=== PATIENT | male | born 1930 | race Caucasian/White ===

== ENCOUNTER 2016-12-19 14:25 | Inpatient (IN) ==
--- NOTE | 2016-12-19 14:54 | Emergency Department Note ---
Disposition Clinical Impression: Osteomyelitis Qualifiers: Osteomyelitis type: unspecified type Osteomyelitis location: foot Laterality: left Qualified Code(s): M86.9 - Osteomyelitis, unspecified Disposition: Admitted As Inpatient Condition: Good Referrals: Shelton Lockwood Jr, MD [Primary Care Provider] - Forms: ED Satisfaction Letter Lower Extremity Injury HPI - General Chief Complaint: ED Extremity Injury, Lower Stated Complaint: L foot wound Time Seen by Provider: 12/19/16 14:43 Source: patient, family Mode of arrival: private vehicle Limitations: no limitations Nursing Notes Reviewed: Yes Vital Signs Reviewed: Yes - History of Present Illness HPI Narrative: 86-year-old male history of hypertension, diabetes who presents to the ER with a chief complaint of left foot wound. He reports a roughly 3 weeks ago he stepped on a nail that went through his shoe. He was seen by his primary care provider and placed on antibiotics. Today he saw the surgeon at wound care who is concerned whenever they evaluated him and expressed purulent material from his foot. Patient was sent for advanced imaging. He denies fevers chills nausea vomiting diarrhea. He otherwise feels healthy. No other complaints. Pt Subjective Complaint: foot injury Injury location: Left foot Onset (ago): week(s) (3) Mechanism of Injury: puncture wound (Stepped on a nail) Context: direct blow Place: home Pain Severity: mild Improves with: nothing Worsens with: nothing Associated symptoms: Reports: ambulatory - Related Data Home Medications Medication Instructions Recorded Confirmed Aspirin Enteric Coated [Aspirin EC] 325 mg PO DAILY 12/19/16 12/19/16 Bisoprolol Fumarate [Zebeta] 10 mg PO DAILY 12/19/16 12/19/16 Metformin HCl [Fortamet] 500 mg PO DAILY 12/19/16 12/19/16 Allergies Allergy/AdvReac Type Severity Reaction Status Date / Time No Known Allergies Allergy Verified 12/19/16 14:34 All systems ED: reviewed and negative except as stated. Constitutional: Denies: fever Cardiovascular: Denies: chest pain Respiratory: Denies: dyspnea Gastrointestinal: Denies: abdominal pain, nausea, vomiting, diarrhea Integumentary: Reports: lesions (Left foot) Past Medical History - Past Medical History Attestation: Yes The following information was validated with the patient. Source: patient Medical history: Reports: CVA, diabetes, hypertension Surgical history: Reports: cholecystectomy Psychiatric history: Reports: no psych history - Social History Smoking Status: Never smoker Smokeless Tobacco Status: No Alcohol use: Reports: none Drug use: Reports: none Physical Exam - General Limitations: no limitations General appearance: alert, in no apparent distress - Head Head exam: atraumatic, normocephalic, normal inspection - Eye Eye exam: Present: normal appearance, EOMI - ENT ENT exam: normal exam - Neck Neck exam: Present: normal inspection, full ROM - Chest Chest inspection: Present: normal inspection, symmetric chest wall rise - Respiratory Respiratory exam: Present: normal lung sounds bilaterally - Cardiovascular Cardiovascular exam: Present: regular rate, normal rhythm, normal heart sounds - Abdominal Exam Abdominal exam: Present: soft, Non-Tender. Absent: tenderness - Extremities Exam Extremities exam: Present: normal inspection, full ROM - Expanded Upper Extremity Exam Shoulder exam: Present: normal inspection, full ROM Arm exam: Present: normal inspection, full ROM Elbow exam: Present: normal inspection, full ROM Forearm/Wrist exam: Present: normal inspection, full ROM Hand exam: Present: normal inspection, full ROM - Expanded Lower Extremity Exam Hip/Pelvis exam: Present: normal inspection, full ROM Upper leg exam: Present: normal inspection, full ROM Knee exam: Present: normal inspection, full ROM Lower leg exam: Present: normal inspection, full ROM Ankle exam: Present: normal inspection, full ROM Foot/toe exam: Present: full ROM, puncture wound (There is a puncture wound to the medial aspect of the left plantar surface of the left foot. There is surrounding soft tissue swelling and breakdown. Minimal amount of purulent material expressed from the site.) Neurovascular/Tendon exam: Present: sensory deficit (Secondary to neuropathy). Absent: motor deficit - Neurological Exam Neurological exam: Present: alert, other (GCS 15. Moves all extremities equally.) - Psychiatric Psychiatric exam: Present: normal affect, normal mood - Skin Skin exam: Present: warm, dry, intact, normal color Course Course Narrative: Patient seen and examined. Vital signs reviewed. We will obtain an MRI of the left foot to evaluate for osteomyelitis as well as basic labs including inflammatory markers. - Reevaluation(s) Reevaluation #1: I discussed the results of the MRI and lab work with the patient and family. There is concern for developing osteomyelitis of his left great toe. I also discussed that we spoke with podiatry and will start IV antibiotics and admission for osteomyelitis. They are in agreement with the plan. - Consultations Consultation #1: I spoke with the on-call brand mgr. Discussed the patient's history exam findings and imaging today. They recommended start the patient on vancomycin and Zosyn and they will see him in consultation. Vital Signs Temperature 97.9 F 12/19/16 14:30 Pulse Rate 67 12/19/16 14:30 Respiratory Rate 18 12/19/16 14:30 Blood Pressure 134/71 12/19/16 14:30 O2 Sat by Pulse Oximetry 95 12/19/16 14:30 Temperature 97.9 F 12/19/16 14:30 Pulse Rate 67 12/19/16 14:30 Respiratory Rate 18 12/19/16 14:30 Blood Pressure 134/71 12/19/16 14:30 O2 Sat by Pulse Oximetry 95 12/19/16 14:30 Oxygen Delivery Oxygen Delivery Room Air Extremity Injury, Lower - MDM Narrative Medical decision making narrative: 86-year-old male history of diabetes presents to the ER due to left foot infection. He stepped on a nail 3 weeks ago. He has failed outpatient antibiotics. Wound care sulfation today and was concerned about purulent material from the left foot. We obtained cultures here. His ESR is elevated at 58. MRI of the left foot with concern for developing osteomyelitis. This case was discussed with podiatry who recommended vancomycin and Zosyn as well as admission to the hospitalist service with consultation. Patient admitted to the hospitalist service. - Lab Data Lab results reviewed: Yes I reviewed the patient's lab results. Result diagrams: 12/19/16 14:50 12/19/16 15:02 Lab Results 12/19/16 12/19/16 12/19/16 Range/Units 14:50 15:02 15:02 WBC 12.9 H (4.3-11.1) K/mcL RBC 5.45 (4.19-5.50) M/mcL Hgb 15.2 (12.9-16.9) g/dL Hct 46.0 (37.5-50.1) % MCV 84.4 (83.0-100.0) fL MCH 27.9 L (28.0-33.3) pg MCHC 33.0 (31.6-35.5) g/dL RDW 12.3 (11.5-14.5) % Plt Count 382 (140-400) K/mcL MPV 9.1 L (9.4-12.4) fL Immature Gran % 0.5 (0-4) % Seg Neutrophils % 74.7 % Lymphocytes % 12.7 % Monocytes % 9.3 % Eosinophils % 2.2 % Basophils % 0.6 % Neutrophils # 9.6 H (1.6-8.9) K/mcL Lymphocytes # 1.6 (0.6-4.6) K/mcL Monocytes # 1.2 (0.0-1.3) K/mcL Eosinophils # 0.3 (0.0-0.6) K/mcL Basophils # 0.1 (0.0-0.2) K/mcL Immature Plt Fraction 1.4 (1.1-6.1) % ESR 58 H (0-10) mm/hr Sodium 137 (136-145) mEq/L Potassium 3.6 (3.5-4.5) mEq/L Chloride 101 (98-109) mEq/L Carbon Dioxide 30 H (19-29) mEq/L BUN 11 (8-26) mg/dL Creatinine 0.77 (0.72-1.25) mg/dL Est GFR ( Amer) > 60 (> 60) Est GFR (Non-Af Amer) > 60 (> 60) BUN/Creatinine Ratio 14 (6-26) Glucose 172 H (70-99) mg/dL Calculated Osmolality 287 (280-300) Calcium 9.4 (8.6-10.8) mg/dL C-Reactive Protein (Less than 5) mg/L 12/19/16 Range/Units 15:02 WBC (4.3-11.1) K/mcL RBC (4.19-5.50) M/mcL Hgb (12.9-16.9) g/dL Hct (37.5-50.1) % MCV (83.0-100.0) fL MCH (28.0-33.3) pg MCHC (31.6-35.5) g/dL RDW (11.5-14.5) % Plt Count (140-400) K/mcL MPV (9.4-12.4) fL Immature Gran % (0-4) % Seg Neutrophils % % Lymphocytes % % Monocytes % % Eosinophils % % Basophils % % Neutrophils # (1.6-8.9) K/mcL Lymphocytes # (0.6-4.6) K/mcL Monocytes # (0.0-1.3) K/mcL Eosinophils # (0.0-0.6) K/mcL Basophils # (0.0-0.2) K/mcL Immature Plt Fraction (1.1-6.1) % ESR (0-10) mm/hr Sodium (136-145) mEq/L Potassium (3.5-4.5) mEq/L Chloride (98-109) mEq/L Carbon Dioxide (19-29) mEq/L BUN (8-26) mg/dL Creatinine (0.72-1.25) mg/dL Est GFR ( Amer) (> 60) Est GFR (Non-Af Amer) (> 60) BUN/Creatinine Ratio (6-26) Glucose (70-99) mg/dL Calculated Osmolality (280-300) Calcium (8.6-10.8) mg/dL C-Reactive Protein 37 H (Less than 5) mg/L - Radiology Data Radiology results reviewed: Yes I reviewed the patient's radiology results. Foot MRI 12/19/16 14:57 IMPRESSION: Image quality is significantly degraded secondary to motion artifact. 1. Within limits of the exam there marrow signal changes and postcontrast enhancement within the medial hallux sesamoid which is highly suspicious for osteomyelitis. Similar marrow signal changes and postcontrast enhancement also identified within the medial cuneiform with what appears to be an adjacent soft tissue wound along the plantar surface of the foot. Findings are also highly suspicious for osteomyelitis of the medial cuneiform. 2. Apparent linear soft tissue wound along the plantar foot which may reflect puncture site given patient's history of stepping on nail. This is located along the medial plantar foot at the level of the midfoot. Please correlate with clinical exam and location of injury. No organized drainable fluid collection identified at this site. 3. Small amount of nonspecific and ill-defined subcutaneous edema/fluid within the soft tissues adjacent to the 1st metatarsophalangeal joint along the plantar medial surface. No definite postcontrast enhancement is seen surrounding this fluid. D/ / Bay Navarro MD / Bay Navarro MD Interpreting Provider: Bay Navarro MD Attestation Statement - Attestation Attestation: I examined this patient and my medical decision-making was reviewed with the Resident Physician. I agree with the documented findings, disposition and treatment plan as described except to the extent set forth below. Patient to the emergency department with a left foot infection. Patient has been undergoing wound care since he stepped on a nail that went through his shoe 3 weeks ago. He states he took 2 antibiotics but is not sure what they were. Went to wound care today and was sent here for possible osteomyelitis. On examination he has sloughing of the skin of the plantar aspect of the ball of the foot at the base of the great and second toes. There is drainage. Plan. Cultures obtained and sent. Labs. MR foot. MRI shows osteomyelitis. Will discuss with podiatry and admit. Starting antibiotic.
[2016-12-19 15:16] LABS: Basophils # 0.1 K/mcL (0.0-0.2); Basophils % 0.6 %; Eosinophils # 0.3 K/mcL (0.0-0.6); Eosinophils % 2.2 %; Hemoglobin 15.2 g/dL (12.9-16.9); Immature Granulocytes % 0.5 % (0-4); Immature Platelets 1.4 % (1.1-6.1); Lymphocytes # 1.6 K/mcL (0.6-4.6); Lymphocytes % 12.7 %; Mean Corpuscular Hemoglobin 27.9 pg (28.0-33.3); Mean Corpuscular Volume 84.4 fL (83.0-100.0); Mean Platelet Volume 9.1 fL (9.4-12.4); Monocytes # 1.2 K/mcL (0.0-1.3); Monocytes % 9.3 %; Neutrophils # 9.6 K/mcL (1.6-8.9); Platelet Count 382 K/mcL (140-400); Red Blood Count 5.45 M/mcL (4.19-5.50); Red Cell Distribution Width 12.3 % (11.5-14.5); Segmented Neutrophils % 74.7 %
[2016-12-19 15:27] LABS: BUN/Creatinine Ratio 14 (6-26); Blood Urea Nitrogen 11 mg/dL (8-26); Calcium 9.4 mg/dL (8.6-10.8); Carbon Dioxide 30 mEq/L (19-29); Chloride 101 mEq/L (98-109); Glucose 172 mg/dL (70-99); Osmolality,Calculated 287 (280-300); Potassium 3.6 mEq/L (3.5-4.5); Sodium 137 mEq/L (136-145); eGFR For African Americans > 60 (> 60); eGFR For Non-African Americans > 60 (> 60)
[2016-12-19] MEDS ORDERED: Piperacillin/Tazobactam 3.375 GM in D5% in Water (Mini-Bag+) 100 ML IVPB ONE (18:32)
[2016-12-19] MEDS ORDERED: Vancomycin 1,000 MG in D5% in Water 250 ML IVPB ONE (18:32)
[2016-12-19] MEDS ORDERED: Acetaminophen 325 MG TABLET PO PRN (21:12)
[2016-12-19] MEDS ORDERED: *HR* HYDROcodone/Acet 5/325 mg TABLET PO PRN (21:12)
[2016-12-19] MEDS ORDERED: Naloxone 0.4 MG/ML INJ IVP PRN (21:12)
[2016-12-19] MEDS ORDERED: *HR* Morphine 2 MG/ML SYRINGE IVP PRN (21:12)
[2016-12-19] MEDS ORDERED: *HR* Dextrose 50 % in Water (Syg) 50 ML SYRINGE IVP PRN (21:15)
[2016-12-19] MEDS ORDERED: D5% in Water 1,000 ML IVC PRN (21:15)
[2016-12-19] MEDS ORDERED: Dextrose Gel 15 GM PO PRN ×2 (21:15)
[2016-12-19] MEDS: Pantoprazole 40 MG VIAL IVP SCH (21:59)
[2016-12-19] MEDS: *HR* Heparin 5,000 UNIT/ML VIAL SQ SCH (21:59)
[2016-12-19] MEDS: 0.9 % Sodium Chloride 1,000 ML IVC SCH (21:59)
--- NOTE | 2016-12-19 22:54 | Internal Med History&Physical ---
<Ezequiel Zendejas - Last Filed: 12/19/16 22:54> Date of Encounter: 12/19/16 Time of Encounter: 22:53 Assessment and Plan (1) Osteomyelitis Current visit: Yes Status: Acute Contiguous osteomyelitis Secondary to puncture wound to left foot MRI indicates high suspicion of osteomyelitis in the medial hallux and medial cuneiform Podiatry Notified and patient started on vancomycin and Zosyn ESR 58 White blood cell count 12.9 CRP 37 Plan: Continue vancomycin and Zosyn Tomorrow morning patient will undergo surgical debridement with bone sample wound cultures pending npo midnight Qualifiers: Osteomyelitis type: unspecified type Osteomyelitis location: foot Laterality: left Qualified Code(s): M86.9 - Osteomyelitis, unspecified (2) Puncture wound of left foot with complication Current visit: Yes Status: Acute 2nd puncture wound from nail does 1-3/4 inch and punctured at a depth of 3/4 inch into his left foot. High suspicion of osteomyelitis indicated by MRI Plan: Vancomycin, Zosyn Podiatry will surgically debride Patient tomorrow morning. Qualifiers: Encounter type: initial encounter Qualified Code(s): S91.332A - Puncture wound without foreign body, left foot, initial encounter (3) Diabetes mellitus Current visit: Yes Status: Chronic controlled on metformin at home plan: diabetic diet achs npo midnight for am surgery Qualifiers: Diabetes mellitus type: type 2 Diabetes mellitus complication status: with neurologic complications Diabetes mellitus complication detail: with autonomic neuropathy Diabetes mellitus detention insulin use: without detention use Qualified Code(s): E11.43 - Type 2 diabetes mellitus with diabetic autonomic (poly)neuropathy (4) Hypertension Current visit: Yes Status: Acute Controlled Plan: Continue home medications Qualifiers: Hypertension type: essential hypertension Qualified Code(s): I10 - Essential (primary) hypertension (5) DVT prophylaxis Current visit: Yes Status: Acute Heparin subcutaneous Internal Medicine - H&P: HPI Chief complaint: left foot wound Admitted From: Home Plans for Post Hospital Care: Home History of present illness: Mr. Jordan is a 86 year old male presents with chief complaint of left foot wound. Patient states in November he was working outside and stepped on a piece of nail there was one and three-quarter inches long with his left foot. He had shoes on and states the nail went as deep as 3/4 inches into the medial mid plantar aspect. Patient has history of diabetes mellitus and severe peripheral neuropathy. He states he did not notice the nail was in his foot for several hours and walked on it. Once the nail was found, it was pulled and the next day patient went to his PCP prescribed him Ciprofloxacillin. In the next week patient developed erythema and purulent drainage around the puncture site and also at the base of his great toe. With the antibiotics patient's wound did not improve and a callus developed at the base of his great toe and the plantar aspect. He was then prescribed combination of ciprofloxacin and Bactrim for another 10 days. His last visit to the PCP was one week ago and he was referred to wound care and his great toe was debrided and there was purulent material expelled from his foot. There were concerned for osteomyelitis and sent the patient a year. Patient denies fevers, chills, nausea, vomiting, diarrhea. Patient received tetanus shot during first visit to PCP in November. Patient denies previous occurrence of this, however decided on in the past he had infection of the right great toe which was managed by antibiotcs and debridement and did not require amputation. Past Med Surg Social Fam HX - Past Medical History Medical history: CVA, diabetes, hypertension Psychiatric history: no psych history - Past Surgical History Surgical History: cholecystectomy - Social History Smoking Status: Never smoker Smokeless Tobacco Status: No Alcohol use: none Drug use: none - Family History Father Living Status: Hx Family Cardiac Disorders: Yes (Hypertension) Mother Cause of : cva Internal Medicine - H&P: Meds Aspirin Enteric Coated [Aspirin EC] 325 mg PO DAILY 12/19/16 [History] Bisoprolol Fumarate [Zebeta] 10 mg PO DAILY 12/19/16 [History] Metformin HCl [Fortamet] 500 mg PO DAILY 12/19/16 [History] 3 Allergy/AdvReac Type Severity Reaction Status Date / Time No Known Allergies Allergy Verified 12/19/16 14:34 All Systems PM: A 10-system review of systems was performed and is negative for pertinent findings except as documented above in the HPI. Review of systems: Constitutional: Denies fever, chills HEENT: Denies headache, vision changes, neck pain, sore throat, rhinorrhea Heart: Denies chest pain palpitations Lungs: Denies shortness of breath cough Abdomen: Denies abdominal pain nausea vomiting diarrhea Back: Denies back pain Skin: Reports left foot puncture wound and erythema Kidney: Denies dysuria, hematuria Extremities: Denies swelling, pain Neuro: Reports numbness in bilateral lower extremities, denies tingling - Constitutional Vitals: Temp Pulse Resp BP Pulse Ox 97.9 F 67 16 125/97 95 12/19/16 14:30 12/19/16 19:04 12/19/16 19:59 12/19/16 19:59 12/19/16 14:30 - Other Additional findings: General: Alert and oriented to place time and situation. Without distress HEENT: Head atraumatic, normocephalic, EOMI, PERRLA, neck nontender to palpation , absent Lymphadenopathy, Moist Mucous Membranes, Heart: Regular rate and rhythm with no murmur Lungs: Clear to auscultation bilaterally Abdomen: Soft nontender, nondistended positive bowel sounds, mid abdominal incision status post cholecystectomy Extremities: Absent pedal edema, Neuro: Cranial nerves II through XII intact, sensation equal bilaterally except for bilateral feet with decreased sensation and proprioception, strength upper and lower extremity 5/5, alert oriented 3 Vascular: Pedal and radialpulses 2 out of 4 Skin: 2 mm puncture wound to left medial mid plantar aspect of foot, erythema on the dorsal aspect of foot, status post debridement of left great toe. Without drainage Internal Med - H&P Results - Labs CBC & Chem 7: 12/19/16 14:50 12/19/16 15:02 <Uriel Damico - Last Filed: 12/20/16 03:31> Date of Encounter: 12/19/16 Internal Medicine - H&P: HPI History of present illness: Mr. Jordan is a 86 year old male All Systems PM: A 10-system review of systems was performed and is negative for pertinent findings except as documented above in the HPI. - Constitutional Vitals: Temp Pulse Resp BP Pulse Ox 97.6 F 63 14 157/66 96 12/19/16 22:00 12/19/16 22:00 12/19/16 22:00 12/19/16 22:00 12/19/16 22:00 Internal Med - H&P Results - Labs CBC & Chem 7: 12/19/16 14:50 12/19/16 15:02 - Diagnostic Studies Other Images Status: image reviewed by me (foot MRI) - Attending Attestation I personally interviewed and examined this patient and my medical decision- making was reviewed with the Resident Physician. I agree with the documented findings, disposition and treatment plan as described. Uriel Damico MD, MPH Hospitalist
--- NOTE | 2016-12-19 23:01 | Podiatry Consult Note ---
Date of Encounter: 12/19/16 Time of Encounter: 09:20 History of Present Illness HPI: Mr. Jordan is a 86 year old diabetic male who approximately 3 weeks ago stepped on a nail which went through his shoe and into his left foot. He pulled it out and saw his PCP who put him on oral antibiotics. [facility] had a draining wound [facility] purulent drainage was coming out of the wound. He was sent from woundcare to the ER for admission. He had an MRI which showed the tibial sesamoid and medial cuneiform highly suspicious for osteomyelitis. denies f/c/n/v. Podiatry consulted for evaluation. A/P diabetes with neuropathy diabetic left foot infection with likely osteomyelitis, possible abscess submet 1 diabetic left foot wound submet 1 and sub medial cuneiform I had a thorough review with the patient regarding his injury/condition, my findings and his treatment options surgical and non-surgical. He has wounds in correlation with the questionable osteomyelitis and abscess site. Discussed with patient sullye of procedure incision and drainage left foot, excision of tibial sesamoid bone and biopsy of medial cuneiform bone. Risks vs benefits potential complications and consequences of the procedure discussed. no guarantees made as to the outcome. he understands he is high risk for partial foot loss. He says he wants to proceed with surgery. all questions answered, informed consent was signed. NPO after midnight. fluids ordered. Added on to OR tomorrow. Past Med Surg Social Fam HX - Past Medical History Medical history: CVA, diabetes, hypertension Psychiatric history: no psych history - Past Surgical History Surgical History: cholecystectomy - Social History Smoking Status: Never smoker Smokeless Tobacco Status: No Alcohol use: none Drug use: none - Family History Father Living Status: Mother Cause of : cva Medications and Allergies Aspirin Enteric Coated [Aspirin EC] 325 mg PO DAILY 12/19/16 [History] Bisoprolol Fumarate [Zebeta] 10 mg PO DAILY 12/19/16 [History] Metformin HCl [Fortamet] 500 mg PO DAILY 12/19/16 [History] 3 Allergy/AdvReac Type Severity Reaction Status Date / Time No Known Allergies Allergy Verified 12/19/16 14:34 All Systems Reviewed: A 10-system review of systems was performed and is negative for pertinent findings except as documented above in the HPI. Physical Exam - Constitutional Vitals: Temp Pulse Resp BP Pulse Ox 97.9 F 67 16 125/97 95 12/19/16 14:30 12/19/16 19:04 12/19/16 19:59 12/19/16 19:59 12/19/16 14:30 - Head Head exam: Present: atraumatic - Extremities Exam Additional comments: Vasc: CFT < 3 sec x 5 digits left foot. left foot warm to touch. Derm: midfoot evidence of entry point from nail sub medial cuneiform. left submet 1 erythema and some fluctuance with evidence of superficial wound with central scab. hyperkeratosis has been debrided submet 1. no purulence able to be expressed. Musc: no pain with calf squeeze b/l. can flex and extend left foot digits. Neuro: sensation absent to light touch Results - Labs Result Diagrams: 12/19/16 14:50 12/19/16 15:02 Labs: Abnormal lab results WBC 12.9 K/mcL (4.3-11.1) H 12/19/16 14:50 MCH 27.9 pg (28.0-33.3) L 12/19/16 14:50 MPV 9.1 fL (9.4-12.4) L 12/19/16 14:50 Neutrophils # 9.6 K/mcL (1.6-8.9) H 12/19/16 14:50 ESR 58 mm/hr (0-10) H 12/19/16 15:02 Carbon Dioxide 30 mEq/L (19-29) H 12/19/16 15:02 Glucose 172 mg/dL (70-99) H 12/19/16 15:02 C-Reactive Protein 37 mg/L (Less than 5) H 12/19/16 15:02 All other labs normal. - Diagnostic results Ankle/Foot MRI: report reviewed, image reviewed Consult Discharge Plan - Plan Referrals: Shelton Lockwood Jr, MD [Primary Care Provider] -
[2016-12-20 05:43] LABS: Basophils # 0.1 K/mcL (0.0-0.2); Basophils % 0.7 %; Eosinophils # 0.4 K/mcL (0.0-0.6); Eosinophils % 3.7 %; Hematocrit 42.5 % (37.5-50.1); Hemoglobin 14.2 g/dL (12.9-16.9); Immature Granulocytes % 0.6 % (0-4); Lymphocytes # 1.4 K/mcL (0.6-4.6); Lymphocytes % 12.5 %; Mean Corpuscular HGB Conc 33.4 g/dL (31.6-35.5); Mean Corpuscular Hemoglobin 27.8 pg (28.0-33.3); Mean Corpuscular Volume 83.3 fL (83.0-100.0); Monocytes # 1.1 K/mcL (0.0-1.3); Monocytes % 9.6 %; Platelet Count 288 K/mcL (140-400); Red Cell Distribution Width 12.3 % (11.5-14.5); Segmented Neutrophils % 72.9 %
[2016-12-20 05:53] LABS: BUN/Creatinine Ratio 13 (6-26); Blood Urea Nitrogen 9 mg/dL (8-26); Calcium 8.6 mg/dL (8.6-10.8); Carbon Dioxide 30 mEq/L (19-29); Chloride 102 mEq/L (98-109); Glucose 131 mg/dL (70-99); Osmolality,Calculated 284 (280-300); Potassium 3.4 mEq/L (3.5-4.5); Sodium 137 mEq/L (136-145); eGFR For African Americans > 60 (> 60); eGFR For Non-African Americans > 60 (> 60)
[2016-12-20] MEDS: Piperacillin/Tazobactam 3.375 GM in D5% in Water (Mini-Bag+) 100 ML IVPB SCH ×3 (05:57→21:02)
[2016-12-20] MEDS: *HR* Heparin 5,000 UNIT/ML VIAL SQ SCH ×2 (05:58→18:12)
[2016-12-20] MEDS ORDERED: Potassium Chloride 20 MEQ, Lidocaine 1% 2 ML in D5% in Water 250 ML IVPB ONE (08:00)
[2016-12-20] MEDS: Pantoprazole 40 MG VIAL IVP SCH (08:12)
[2016-12-20] MEDS: Insulin LISPRO 300 UNITS/3 ML VIAL SQ SCH ×4 (08:23→21:06)
[2016-12-20] MEDS ORDERED: (Bisoprolol Fumarate [Zebeta] 10 MG) PO SCH (09:00)
[2016-12-20] MEDS: 0.9 % Sodium Chloride 1,000 ML IVC SCH (10:21)
--- NOTE | 2016-12-20 12:01 | Anesthesia Evaluation PreOp ---
Date of Encounter: 12/20/16 Time of Encounter: 11:59 - Past History Planned Operation: I and D left foot, excision bone, bone bx Cardiac History: HTN Pulmonary History: Denies Any Significant HX [employer] History: Denies Any Significant HX Other Medical History: Diabetes Type II Anesthesia History: No Prior Anesthetic Complications, Past Anesthesia ( cholecystectomy) Alcohol Use: none Drug use: none Medications and Allergies Aspirin Enteric Coated [Aspirin EC] 325 mg PO DAILY 12/19/16 [History] Bisoprolol Fumarate [Zebeta] 10 mg PO DAILY 12/19/16 [History] Metformin HCl [Fortamet] 500 mg PO DAILY 12/19/16 [History] 3 Allergy/AdvReac Type Severity Reaction Status Date / Time No Known Allergies Allergy Verified 12/19/16 14:34 - Meds/Allergy Pre-op Review Medications Reviewed: Yes Allergies Reviewed: Yes Beta Blockers on Current Med List: Yes If Beta Blockers taken, Date/Time (Last Dose taken): not taken in over 48hrs, will give intraop if needed Anesthesia Results - Labs 12/20/16 05:18 12/20/16 05:18 Anesthesia Exam Vital Signs/O2 Sat, Most Current Temp Pulse Resp BP Pulse Ox 97.4 F L 58 16 161/72 98 12/20/16 11:53 12/20/16 11:53 12/20/16 11:53 12/20/16 11:53 12/20/16 11:53 Height: 1.73 Weight: 63kg NPO (# of Hours): >8 - HEENT Pupil (Motor): Pupils equal, EOMI Teeth: Edentulous Oral Opening: Greater than 3 - [employer] LOC: Oriented [employer] Motor: Normal RUE, Normal LUE, Normal RLE, Normal LLE, Normal Face [employer] Sensory: Normal: RUE, LUE, RLE, LLE, Face - Cardiac Rhythm: Regular - Pulmonary Breath Sounds: bilateral Clear Anesthesia Assess/Plan ASA Score: 3 Modified Thong Scale for Level of Consciousness: Cooperative, oriented, and tranquil Anesthetic Plan: General (HTN, DM) Monitoring Plan: Standard Monitors Recovery Plan: PACU
--- NOTE | 2016-12-20 12:31 | Internal Med Progress Note ---
Date of Encounter: 12/20/16 Time of Encounter: 12:29 - Assessment and plan (1) Osteomyelitis Current Visit: Yes Status: Acute Assessment and plan: Secondary to traumatic injury history of diabetic neuropathy scheduled for surgery by podiatry later today (12/20/16) pain control NPO at this time will resume ADA diet will continue post-op care as per podiatry podiatry consultation appreciated continue IV abx ID consultation for [facility] abx management requested Qualifiers: Osteomyelitis type: unspecified type Osteomyelitis location: foot Laterality: left Qualified Code(s): M86.9 - Osteomyelitis, unspecified (2) Puncture wound of left foot with complication Current Visit: Yes Status: Chronic Assessment and plan: as listed above Qualifiers: Encounter type: initial encounter Qualified Code(s): S91.332A - Puncture wound without foreign body, left foot, initial encounter (3) Hypokalemia Current Visit: Yes Status: Acute Assessment and plan: K supplemented continue to monitor electrolytes and replace as needed (4) Diabetes mellitus Current Visit: Yes Status: Chronic Assessment and plan: continue to monitor FS and BG accuchecks q6h while NPO, ACHS once diet is resume continue ss insulin algorithm Qualifiers: Diabetes mellitus type: type 2 Diabetes mellitus complication status: with neurologic complications Diabetes mellitus complication detail: with autonomic neuropathy Diabetes mellitus m[facility]p insulin use: without [facility] use Qualified Code(s): E11.43 - Type 2 diabetes mellitus with diabetic autonomic (poly)neuropathy (5) Hypertension Current Visit: Yes Status: Acute Assessment and plan: Pt on bisoprolol at home, not available in the hospital pharmacy, will dose Atenolol as per his home dose of BB will use Lopressor 5mg IV q6h while NPO closely monitor BP Qualifiers: Hypertension type: essential hypertension Qualified Code(s): I10 - Essential (primary) hypertension (6) DVT prophylaxis Current Visit: Yes Status: Acute Assessment and plan: Heparin SQ - Subjective Interval history: Patient seen and examined with family present at bedside. Pt is [place] and has severe b/l LE peripheral neuropathy. As per family, he stepped on a nail and didn't even realize it as he has no sensation intact in the b/l feet. He is currently resting comfortably in bed and denies any discomfort. He lives at home with his . Scheduled for surgical debridement of left foot later today. - Constitutional Vitals: Temp Pulse Resp BP Pulse Ox 97.4 F L 58 16 161/72 98 12/20/16 11:53 12/20/16 11:53 12/20/16 11:53 12/20/16 11:53 12/20/16 11:53 General appearance: Present: cooperative, A&O X 3 (hard of hearing), no acute distress, answers questions appropriately - Head Head exam: Present: atraumatic, normocephalic - Eye Eye exam: Present: conjuntiva pink, sclera anicteric - Respiratory Respiratory exam: Present: CTAB. Absent: accessory muscle use, rales, rhonchi, wheezes - Cardiovascular Cardiovascular exam: Present: RRR, +S1, +S2. Absent: diastolic murmur, gallop, rubs, systolic murmur - GI/Abdominal GI/Abdominal exam: Present: normal bowel sounds, soft, no peritoneal signs. Absent: distended, tenderness - Extremities Exam Extremities exam: Present: warm, radial pulses palpable and symmetrical. Absent : calf tenderness (2 mm puncture wound to left medial mid plantar aspect of foot , erythema on the dorsal aspect of foot, status post debridement of left great toe.NO drainage) - Neurological Exam Neurological exam: Present: oriented X3 (decreased sensation in bilateral feet) - Psychiatric Psychiatric exam: Present: normal affect, normal mood Internal Medicine: Result - Labs CBC & Chem 7: 12/20/16 05:18 12/20/16 05:18 Labs: Short CBC 12/20/16 Range/Units 05:18 WBC 11.0 (4.3-11.1) K/mcL Hgb 14.2 (12.9-16.9) g/dL Hct 42.5 (37.5-50.1) % Plt Count 288 (140-400) K/mcL Neutrophils # 8.0 (1.6-8.9) K/mcL BMP 12/20/16 05:18 Sodium 137 Potassium 3.4 L Chloride 102 Carbon Dioxide 30 H BUN 9 Creatinine 0.70 L Glucose 131 H Calcium 8.6 Consult Discharge Plan - Plan Referrals: Shelton Lockwood Jr, MD [Primary Care Provider] -
[2016-12-20] MEDS ORDERED: *HR* Propofol 200 MG/20 ML VIAL IVP ONE ×3 (12:33→15:07)
[2016-12-20] MEDS ORDERED: Lidocaine -MPF 2% 2 ML VIAL ONE (12:33)
[2016-12-20] MEDS ORDERED: *HR* Metoprolol 5 MG/5 ML VIAL IVP SCH (12:36)
[2016-12-20] MEDS ORDERED: Lidocaine 1% 20 ML MDV ONE (14:06)
[2016-12-20] MEDS ORDERED: Vancomycin 1,000 MG VIAL ONE (14:06)
[2016-12-20] MEDS ORDERED: Ringers Solution, Lactated 1,000 ML ONE (14:48)
[2016-12-20] MEDS ORDERED: *HR* FentaNYL (PF) 100 MCG/2 ML VIAL ONE (15:17)
--- NOTE | 2016-12-20 16:19 | Anesthesia Evaluation Post Op ---
Date of Encounter: 12/20/16 Time of Encounter: 16:17 - Vital Signs Vital Signs: BP 104/58, P 60 RR 18, 97% on 3L NC - Lungs Lungs: Clear Ascult./Percussion - Airway Airway: Non-obstructed - Cardiovascular Regular Rate - Mental Status Mental Status: Asleep without brisk response to light stimulation - Pain Pain Scale: 0 Pain Scale used: Numeric (1 - 10) - Nausea Vomiting Nausea Vomiting: Not Present - Hydration Hydration: NPO - Discharge PostOp Status: Transfer Patient to floor Attestation: I have assessed this patient and find they meet discharge criteria.
[2016-12-20] MEDS ORDERED: D5% in Water 1,000 ML IVC PRN (16:23)
[2016-12-20] MEDS ORDERED: Dextrose Gel 15 GM PO PRN ×2 (16:23)
[2016-12-20] MEDS ORDERED: *HR* HYDROcodone/Acet 5/325 mg TABLET PO PRN (16:23)
[2016-12-20] MEDS ORDERED: Acetaminophen 325 MG TABLET PO PRN (16:23)
[2016-12-20] MEDS ORDERED: *HR* Dextrose 50 % in Water (Syg) 50 ML SYRINGE IVP PRN (16:23)
[2016-12-20] MEDS ORDERED: *HR* Morphine 2 MG/ML SYRINGE IVP PRN (16:23)
[2016-12-20] MEDS ORDERED: Naloxone 0.4 MG/ML INJ IVP PRN (16:23)
--- NOTE | 2016-12-20 16:28 | Event Note ---
Date of Encounter: 12/20/16 Time of Encounter: 16:23 s/pleft foot I&D, removal of tibial sesamoid, and bone biopsy medial cuneiform. Purulence present plantar foot submet 1 left foot. Cultures for aerobic and anaerobic microbiology-culture swab left foot plantar submet 1, tibial sesamoid bone, medial cuneiform bone Pathology specimens-sesamoid bone, medial cuneiform bone (5 cylindrical pieces of bone) okay to resume any anti-coagulants. consult infectious disease for abx recommendations. ordered MIN/PVR (segmental pressures) consult vascular pending results. physical therapy. he is heel weight bearing in a surgical shoe left foot with use of walker. reinforce bandage as needed.
--- NOTE | 2016-12-20 16:43 | Operative Note ---
Date of procedure: 12/20/16 Pre-op diagnosis: left foot abscess, left foot osteomyelitis Post-op diagnosis: same Procedure: 1. incision and drainage left foot 2. excision of tibial sesamoid bone 3. biopsy of medial cuneiform bone Implants: none Complications: none Anesthesia: MAC Local Anesthetics: 1% Lidocaine HCL SubQ (cc) Surgeon: Lele Mina Estimated blood loss (cc): 15 Specimen: see below Condition: stable Disposition: PACU Procedure in Detail: Cultures for aerobic and anaerobic microbiology-culture swab left foot plantar submet 1, tibial sesamoid bone, medial cuneiform bone Pathology specimens-sesamoid bone, medial cuneiform bone (5 cylindrical pieces of bone obtained with jam shidi needle) Indications: 86-year-old diabetic male who stepped on a nail which went through his shoe 3 weeks ago. He was treated with oral antibiotics by his primary care physician. He did not improve on oral antibiotics and he was seen in the wound care center with purulence expressed from his foot. He was sent to the emergency room for admission. An MRI was done which was questionable for osteomyelitis of the tibial sesamoid and medial cuneiform bone. The nature of the problem was discussed with the patient and his family as well as the nature of the procedures performed and the potential complications and consequences of the procedure. No guarantees were made as to the outcome. They understood that he could lose his toe or part of his foot or leg. Informed consent and been signed and the patient was taken from the preoperative holding area and operating room placed on the operating room table in the supine position the left foot was scrubbed prepped and draped in the usual sterile fashion. An ankle tourniquet was applied but not inflated during the entire procedure. 12cc of 1% lidocaine plain was injected into the patient's left foot. Biopsy of medial cuneiform bone left foot. Attention was directed to the medial aspect of the patient's left foot where plantarly there was a scab present at the site of injury from the nail. A stab incision was made medially using the C-arm to confirm that it was over the medial K of formed bone. A Jamshidi needle was inserted and cylindrical pieces of bone were obtained of the medial cuneiform bone which were sent to microbiology and to pathology for evaluation. Incision and drainage left foot, excision of tibial sesamoid. Attention was directed to the plantar aspect of the patient's left foot where cellulitis and fluctuance was present. There was also a full-thickness wound approximately 1 cm x 1 cm x 0.4cm at the medial aspect of the plantar first metatarsal. A #15 blade was used to make an incision into the subcutaneous tissue and excising the ulceration site. It should be noted that there was purulent dishwater santiago drainage in the plantar aspect of the foot at this level. Culture swabs of drainage in this area were obtained and sent to microbiology. There was devitalized tissue present which was excised. There was devitalized tissue overlying the flexor tendon which was also excised. The medial cuneiform was identified and confirmed using fluoroscopy and the tibial sesamoid bone was excised in its entirety and half was sent to pathology and the other half sent to microbiology. The surgical site was flushed with copious amounts of normal sterile saline remaining tissue was not noted to be devitalized. No purulent drainage could be further expressed or identified. Attention was then directed proximally where the nail had entered the patient's foot and a separate incision made in an elliptical fashion with a #15 blade over the area. The area was probed and explored with a clean hemostat no purulence was noted to be expressed and devitalized tissue was not present at this level. 3-0 Prolene was used to close this area and the side of the medial cuneiform biopsy distally one retention suture was placed and the wound was packed open with half -inch iodoform packing. Postoperative bandaging included 4 x 4 gauze abdominal pad Kerlix and a loosely applied Christian wrap. The patient tolerated the anesthesia and the procedure well and had capillary refill time intact to all digits of the left foot at the conclusion of the procedure. He was escorted to the recovery room with vital signs stable and vascular status intact to the left foot. He will return to the floor where he will continue IV antibiotics.
[2016-12-20] MEDS: *HR* Metoprolol 5 MG/5 ML VIAL IVP SCH (18:06)
[2016-12-20] MEDS: Vancomycin 1,250 MG in D5% in Water 250 ML IVPB SCH (18:13)
[2016-12-20] MEDS ORDERED: Vancomycin 1,250 MG in D5% in Water 250 ML IVPB SCH (19:00)
[2016-12-20] MEDS ORDERED: Insulin LISPRO 300 UNITS/3 ML VIAL SQ SCH (21:00)
[2016-12-20] MEDS ORDERED: Vancomycin 1,000 MG in D5% in Water 250 ML IVPB SCH (22:00)
[2016-12-21] MEDS: *HR* Metoprolol 5 MG/5 ML VIAL IVP SCH ×2 (00:55→05:38)
[2016-12-21] MEDS: *HR* Heparin 5,000 UNIT/ML VIAL SQ SCH ×2 (05:48→17:25)
[2016-12-21] MEDS: Piperacillin/Tazobactam 3.375 GM in D5% in Water (Mini-Bag+) 100 ML IVPB SCH ×3 (05:49→21:08)
[2016-12-21 06:18] LABS: Basophils # 0.1 K/mcL (0.0-0.2); Basophils % 0.9 %; Eosinophils # 0.5 K/mcL (0.0-0.6); Hematocrit 41.6 % (37.5-50.1); Hemoglobin 13.9 g/dL (12.9-16.9); Immature Granulocytes % 0.5 % (0-4); Lymphocytes # 1.9 K/mcL (0.6-4.6); Lymphocytes % 16.3 %; Mean Corpuscular HGB Conc 33.4 g/dL (31.6-35.5); Mean Corpuscular Hemoglobin 27.9 pg (28.0-33.3); Mean Corpuscular Volume 83.4 fL (83.0-100.0); Mean Platelet Volume 9.4 fL (9.4-12.4); Monocytes % 8.9 %; Neutrophils # 7.9 K/mcL (1.6-8.9); Platelet Count 317 K/mcL (140-400); Red Blood Count 4.99 M/mcL (4.19-5.50); Red Cell Distribution Width 12.4 % (11.5-14.5); Segmented Neutrophils % 69.4 %
[2016-12-21 06:32] LABS: BUN/Creatinine Ratio 11 (6-26); Blood Urea Nitrogen 8 mg/dL (8-26); Calcium 8.7 mg/dL (8.6-10.8); Carbon Dioxide 28 mEq/L (19-29); Chloride 103 mEq/L (98-109); Glucose 94 mg/dL (70-99); Magnesium 1.7 mg/dL (1.6-2.6); Osmolality,Calculated 282 (280-300); Phosphorous 2.7 mg/dL (2.3-4.7); Potassium 3.6 mEq/L (3.5-4.5); Sodium 137 mEq/L (136-145); eGFR For African Americans > 60 (> 60); eGFR For Non-African Americans > 60 (> 60)
[2016-12-21] MEDS: Pantoprazole 40 MG VIAL IVP SCH (09:12)
--- NOTE | 2016-12-21 10:59 | Internal Med Progress Note ---
Date of Encounter: 12/21/16 Time of Encounter: 10:40 - Assessment and plan (1) Osteomyelitis Current Visit: Yes Status: Acute Assessment and plan: Secondary to traumatic injury history of diabetic neuropathy Podiatry evaluation appreciated DOS: 12/20/16 POD #1: I&D left foot, excision of tibial sesamoid bone, biopsy of medial cuneiform bone. f/u MIN/PVR continue IV abx ID consultation for care home abx management requested Qualifiers: Osteomyelitis type: unspecified type Osteomyelitis location: foot Laterality: left Qualified Code(s): M86.9 - Osteomyelitis, unspecified (2) Puncture wound of left foot with complication Current Visit: Yes Status: Chronic Assessment and plan: as listed above Qualifiers: Encounter type: initial encounter Qualified Code(s): S91.332A - Puncture wound without foreign body, left foot, initial encounter (3) Hypokalemia Current Visit: Yes Status: Resolved Assessment and plan: Resolved continue to monitor electrolytes and replace as needed (4) Diabetes mellitus Current Visit: Yes Status: Chronic Assessment and plan: continue to monitor FS and BG continue ss insulin algorithm ADA diet Qualifiers: Diabetes mellitus type: type 2 Diabetes mellitus complication status: with neurologic complications Diabetes mellitus complication detail: with autonomic neuropathy Diabetes mellitus care home insulin use: without care home use Qualified Code(s): E11.43 - Type 2 diabetes mellitus with diabetic autonomic (poly)neuropathy (5) Hypertension Current Visit: Yes Status: Acute Assessment and plan: BP within acceptable range continue Atenolol will continue to monitor Qualifiers: Hypertension type: essential hypertension Qualified Code(s): I10 - Essential (primary) hypertension (6) DVT prophylaxis Current Visit: Yes Status: Acute Assessment and plan: Heparin SQ - Subjective Interval history: Patient seen and examined at bedside. Resting in bed and denies any discomfort at this time. POD #1: I&D left foot, excision of tibial sesamoid bone, biopsy of medial cuneiform bone. No overnight events reported. with family present at bedside. Pt is [place] and has severe b/l LE peripheral neuropathy. As per family, he stepped on a nail and didn't even realize it as he has no sensation intact in the b/l feet. He is currently resting comfortably in bed and denies any discomfort. He lives at home with his . Scheduled for surgical debridement of left foot later today. - Constitutional Vitals: Temp Pulse Resp BP Pulse Ox 97.8 F 64 14 129/65 95 12/21/16 07:45 12/21/16 07:45 12/21/16 07:45 12/21/16 07:45 12/21/16 07:45 General appearance: Present: cooperative, A&O X 3 (hard of hearing), no acute distress, answers questions appropriately - Head Head exam: Present: atraumatic, normocephalic - Eye Eye exam: Present: conjuntiva pink, sclera anicteric - Respiratory Respiratory exam: Present: CTAB. Absent: accessory muscle use, rales, rhonchi, wheezes - Cardiovascular Cardiovascular exam: Present: RRR, +S1, +S2. Absent: diastolic murmur, gallop, rubs, systolic murmur - GI/Abdominal GI/Abdominal exam: Present: normal bowel sounds, soft, no peritoneal signs. Absent: distended, tenderness - Extremities Exam Extremities exam: Present: warm, radial pulses palpable and symmetrical. Absent : calf tenderness (left foot wrapped in dressing ) - Neurological Exam Neurological exam: Present: alert, oriented X3 - Psychiatric Psychiatric exam: Present: normal affect, normal mood Internal Medicine: Result - Labs CBC & Chem 7: 12/21/16 05:39 12/21/16 05:39 Labs: Short CBC 12/21/16 Range/Units 05:39 WBC 11.4 H (4.3-11.1) K/mcL Hgb 13.9 (12.9-16.9) g/dL Hct 41.6 (37.5-50.1) % Plt Count 317 (140-400) K/mcL Neutrophils # 7.9 (1.6-8.9) K/mcL BMP 12/21/16 05:39 Sodium 137 Potassium 3.6 Chloride 103 Carbon Dioxide 28 BUN 8 Creatinine 0.73 Glucose 94 Calcium 8.7 Consult Discharge Plan - Plan Referrals: Shelton Lockwood Jr, MD [Primary Care Provider] -
--- NOTE | 2016-12-21 11:15 | Podiatry Progress Note ---
Date of Encounter: 12/21/16 Time of Encounter: 10:45 - Assessment and Plan (1) Cutaneous abscess of left foot Current Visit: Yes Status: Acute discussed with patient surgical procedure. no purulence in tissue today submet 1. f/u wound and bone cultures. ambulation heel weight bearing in surgical shoe with walker. may apply wound vac tomorrow. flushed and packed with iodoform packing today. f/u MIN/PVR. f/u infectious disease. (2) Puncture wound of left foot with complication Current Visit: Yes Status: Chronic tetanus status up to do date. see above Qualifiers: Encounter type: initial encounter Qualified Code(s): S91.332A - Puncture wound without foreign body, left foot, initial encounter (3) Osteomyelitis Current Visit: Yes Status: Acute see above. Qualifiers: Osteomyelitis type: unspecified type Osteomyelitis location: foot Laterality: left Qualified Code(s): M86.9 - Osteomyelitis, unspecified Subjective Principal diagnosis: diabetic foot infection Interval history: POD #1 s/p left foot I&D, removal of sesamoid bone, medial cuneiform bone biopsy. denies f/c/n/v. some pain overnight says he took pain medication. says he has been staying off the foot. His tetanus status is up to date. Objective - Vital Signs Vital Signs: Vital Signs Temp Pulse Resp BP Pulse Ox 12/21/16 07:45 97.8 F 64 14 129/65 95 12/21/16 05:36 97.6 F 63 14 139/63 97 12/21/16 00:57 98.2 F 68 14 134/73 95 12/20/16 19:50 97.6 F 67 15 160/52 95 12/20/16 18:54 98.1 F 70 16 146/70 98 12/20/16 17:50 97.9 F 64 16 134/67 98 12/20/16 16:50 98.1 F 57 15 131/65 98 12/20/16 16:20 98.0 F 55 15 139/64 98 Intake and Output 12/20/16 12/21/16 12/21/16 23:59 07:59 15:59 Intake Total 0 / 0 300 / 300 240 / 240 Output Total 665 / 665 1350 / 1350 Balance -665 / -665 -1050 / -1050 240 / 240 Intake: IV Fluids 100 / 100 Zosyn 3.375 GM In 100 / 100 Dextrose 5% (Minibag+) 100 ML 100 ML @ 25 mls/hr IVPB Q8H [facility] Rx#: [id number] Oral 0 / 0 200 / 200 240 / 240 Output: Urine 650 / 650 1350 / 1350 Estimated Blood Loss Other: Meal Breakfast Percent of Meal Consumed 100% Weight 64.546 kg Blood Glucose* 118 97 Patient Weight 12/21/16 23:59 Weight 64.546 kg - Exam Exam: well developed and nourished male in no acute distress Vasc: CFT < 3 sec x 5 digits left. left hallux is warm to touch. no cyanosis. Derm: midfoot sutures intact as is one retention suture distally. the submet 1 left foot wound is [id number]. there is no purulence expressed. there is no fluctuance. erythema decreased. Musc: no pain with palpation of wound. no calf pain with squeeze. Neuro: absent sensation to light touch. - Lab Result Diagrams: 12/21/16 05:39 12/21/16 05:39 Labs: Abnormal lab results WBC 11.4 K/mcL (4.3-11.1) H 12/21/16 05:39 MCH 27.9 pg (28.0-33.3) L 12/21/16 05:39 ESR 58 mm/hr (0-10) H 12/19/16 15:02 POC Glucose 118 (58-89) H 12/20/16 21:01 C-Reactive Protein 37 mg/L (Less than 5) H 12/19/16 15:02 Microbiology, Last 48 Hours 12/20/16 17:06 Wound Culture - Preliminary Left Foot No growth. Consult Discharge Plan - Plan Referrals: Shelton Lockwood Jr, MD [Primary Care Provider] -
[2016-12-21] MEDS: Insulin LISPRO 300 UNITS/3 ML VIAL SQ SCH ×4 (12:48→21:50)
[2016-12-21] MEDS: Vancomycin 1,250 MG in D5% in Water 250 ML IVPB SCH (17:25)
[2016-12-22 05:00] LABS: Basophils # 0.1 K/mcL (0.0-0.2); Basophils % 0.8 %; Eosinophils # 0.5 K/mcL (0.0-0.6); Eosinophils % 4.2 %; Hematocrit 42.2 % (37.5-50.1); Hemoglobin 14.2 g/dL (12.9-16.9); Immature Granulocytes % 0.4 % (0-4); Lymphocytes # 2.4 K/mcL (0.6-4.6); Lymphocytes % 20.6 %; Mean Corpuscular HGB Conc 33.6 g/dL (31.6-35.5); Mean Corpuscular Hemoglobin 28.5 pg (28.0-33.3); Mean Corpuscular Volume 84.6 fL (83.0-100.0); Mean Platelet Volume 9.8 fL (9.4-12.4); Monocytes # 1.3 K/mcL (0.0-1.3); Monocytes % 11.1 %; Neutrophils # 7.2 K/mcL (1.6-8.9); Platelet Count 315 K/mcL (140-400); Red Blood Count 4.99 M/mcL (4.19-5.50); Red Cell Distribution Width 12.4 % (11.5-14.5); Segmented Neutrophils % 62.9 %
[2016-12-22 05:18] LABS: BUN/Creatinine Ratio 11 (6-26); Blood Urea Nitrogen 9 mg/dL (8-26); Calcium 8.8 mg/dL (8.6-10.8); Carbon Dioxide 28 mEq/L (19-29); Chloride 103 mEq/L (98-109); Glucose 103 mg/dL (70-99); Osmolality,Calculated 287 (280-300); Phosphorous 2.7 mg/dL (2.3-4.7); Potassium 3.5 mEq/L (3.5-4.5); Sodium 139 mEq/L (136-145); eGFR For African Americans > 60 (> 60); eGFR For Non-African Americans > 60 (> 60)
[2016-12-22] MEDS: Piperacillin/Tazobactam 3.375 GM in D5% in Water (Mini-Bag+) 100 ML IVPB SCH ×3 (05:20→21:53)
[2016-12-22] MEDS: *HR* Heparin 5,000 UNIT/ML VIAL SQ SCH ×2 (05:22→17:25)
[2016-12-22] MEDS: Insulin LISPRO 300 UNITS/3 ML VIAL SQ SCH ×4 (09:08→21:52)
[2016-12-22] MEDS: Pantoprazole 40 MG VIAL IVP SCH (09:08)
--- NOTE | 2016-12-22 09:50 | Internal Med Progress Note ---
Date of Encounter: 12/22/16 Time of Encounter: 09:48 - Assessment and plan (1) Osteomyelitis Current Visit: Yes Status: Acute Assessment and plan: Secondary to traumatic injury history of diabetic neuropathy Podiatry evaluation appreciated DOS: 12/20/16 POD #2: I&D left foot, excision of tibial sesamoid bone, biopsy of medial cuneiform bone. f/u MIN/PVR continue IV abx ID consultation for halfway abx management requested Qualifiers: Osteomyelitis type: unspecified type Osteomyelitis location: foot Laterality: left Qualified Code(s): M86.9 - Osteomyelitis, unspecified (2) Puncture wound of left foot with complication Current Visit: Yes Status: Chronic Assessment and plan: as listed above Qualifiers: Encounter type: initial encounter Qualified Code(s): S91.332A - Puncture wound without foreign body, left foot, initial encounter (3) Hypokalemia Current Visit: Yes Status: Resolved Assessment and plan: Resolved continue to monitor electrolytes and replace as needed (4) Diabetes mellitus Current Visit: Yes Status: Chronic Assessment and plan: continue to monitor FS and BG continue ss insulin algorithm ADA diet Qualifiers: Diabetes mellitus type: type 2 Diabetes mellitus complication status: with neurologic complications Diabetes mellitus complication detail: with autonomic neuropathy Diabetes mellitus halfway insulin use: without halfway use Qualified Code(s): E11.43 - Type 2 diabetes mellitus with diabetic autonomic (poly)neuropathy (5) Hypertension Current Visit: Yes Status: Acute Assessment and plan: BP within acceptable range continue Atenolol will continue to monitor Qualifiers: Hypertension type: essential hypertension Qualified Code(s): I10 - Essential (primary) hypertension (6) DVT prophylaxis Current Visit: Yes Status: Acute Assessment and plan: Heparin SQ - Subjective Interval history: Patient seen and examined at bedside. Resting in bed and denies any discomfort at this time. POD #2: I&D left foot, excision of tibial sesamoid bone, biopsy of medial cuneiform bone. No overnight events reported. - Constitutional Vitals: Temp Pulse Resp BP Pulse Ox 97.9 F 59 14 137/72 95 12/22/16 07:20 12/22/16 07:20 12/22/16 07:20 12/22/16 07:20 12/22/16 07:20 General appearance: Present: cooperative, A&O X 3 (hard of hearing), no acute distress, answers questions appropriately - Head Head exam: Present: atraumatic, normocephalic - Eye Eye exam: Present: conjuntiva pink, sclera anicteric - Respiratory Respiratory exam: Present: CTAB. Absent: accessory muscle use, rales, rhonchi, wheezes - Cardiovascular Cardiovascular exam: Present: RRR, +S1, +S2. Absent: diastolic murmur, gallop, rubs, systolic murmur - GI/Abdominal GI/Abdominal exam: Present: normal bowel sounds, soft, no peritoneal signs. Absent: distended, tenderness - Extremities Exam Extremities exam: Present: warm, radial pulses palpable and symmetrical. Absent : calf tenderness Additional comments: left foot dressing intact - Neurological Exam Neurological exam: Present: alert, oriented X3 - Psychiatric Psychiatric exam: Present: normal affect, normal mood Internal Medicine: Result - Labs CBC & Chem 7: 12/22/16 02:51 12/22/16 02:51 Labs: Short CBC 12/22/16 Range/Units 02:51 WBC 11.5 H (4.3-11.1) K/mcL Hgb 14.2 (12.9-16.9) g/dL Hct 42.2 (37.5-50.1) % Plt Count 315 (140-400) K/mcL Neutrophils # 7.2 (1.6-8.9) K/mcL BMP 12/22/16 02:51 Sodium 139 Potassium 3.5 Chloride 103 Carbon Dioxide 28 BUN 9 Creatinine 0.79 Glucose 103 H Calcium 8.8 Consult Discharge Plan - Plan Referrals: Shelton Lockwood Jr, MD [Primary Care Provider] -
--- NOTE | 2016-12-22 13:50 | Infectious Disease Consult ---
Date of Encounter: 12/22/16 Time of Encounter: 13:48 Assessment and Plan (1) Leukocytosis Status: Acute Assessment and plan: WBc elevated on admission. Improved, but still slightly elevated. Likely secondary to left foot OM. Continue to trend. Qualifiers: Leukocytosis type: unspecified Qualified Code(s): D72.829 - Elevated white blood cell count, unspecified (2) Osteomyelitis Status: Acute Assessment and plan: Location: Left foot medial cuneiform and medial hallux sesamoid. Causative organism unclear. Superficial wound culture gram stain obtained intra- operatively shows GPC. Additional tissue/bone cultures are preliminarily negative, but still pending. Secondary to recent nail puncture to the plantar aspect of the left foot. Failed outpatient oral antibiotic therapy (Cipro/Bactrim x 10 days, followed by additional 10 days of Bactrim). ESR and CRP are elevated at 58 and 37, respectively. MRI of the left foot showed osteomyelitis of the medial hallux sesamoid and medial cuneiform. Podiatry consulted. Status post left foot I & D, removal of tibial sesamoid bone , bone biopsy of the medial cuneiform. Operative report reviewed. Purulence noted. Swab culture of the left foot plantar submetatarsal, tibial sesamoid bone , and medial cuneiform bone are pending. Pathology of the sesamoid bone and medial cuneiform bone are pending as well. Swab culture of the left foot plantar submetatarsal gram stain shows GPC. Final ID and sensitivity are pending. Other cultures are preliminarily negative. Continue Vancomycin IV. Pharmacy to dose. Goal trough approximately 15. Vanc trough scheduled to be drawn before the patient's evening dose today. Continue Zosyn 3.375 grams IV Q8H. Will de-escalate if/when able based on cultures. Duration of treatment depends on the clinical picture. Monitor renal function and for drug toxicity and dose-adjust antibiotics. Continue wound care and activity restrictions as outlined by the podiatry team. Consult director of social work for discharge planning. Qualifiers: Osteomyelitis type: unspecified type Osteomyelitis location: foot Laterality: left Qualified Code(s): M86.9 - Osteomyelitis, unspecified (3) Cutaneous abscess of left foot Status: Acute Assessment and plan: Location: Plantar aspect of left foot. Causative organism unclear. Cultures pending. Podiatry consulted and following. Continue antibiotics as above. (4) Puncture wound of left foot with complication Status: Chronic Assessment and plan: Patient reports stepping on a nail 11/10/16. Tdap given in November 2016 by PCP. Qualifiers: Encounter type: initial encounter Qualified Code(s): S91.332A - Puncture wound without foreign body, left foot, initial encounter (5) Diabetes mellitus Status: Chronic Assessment and plan: Diagnosed 20 years ago. Controlled with oral antihyperglycemics. Does not check glucose levels at home. Check HgbA1C. Recommend aggressive glucose monitoring and control to promote wound healing and prevent re-infection. Qualifiers: Diabetes mellitus type: type 2 Diabetes mellitus complication status: with neurologic complications Diabetes mellitus complication detail: with autonomic neuropathy Diabetes mellitus superintendent terminal insulin use: without superintendent terminal use Qualified Code(s): E11.43 - Type 2 diabetes mellitus with diabetic autonomic (poly)neuropathy (6) Hypertension Status: Chronic Qualifiers: Hypertension type: essential hypertension Qualified Code(s): I10 - Essential (primary) hypertension Infectious Disease HPI - Data of Consult Patient: new to practice Consult date: 12/22/16 Requesting Physician: Miguelina Burns MD Primary Care Provider: Shelton Lockwood Jr, MD - Consult Narrative Reason for consult: Osteomyelitis left foot History of present illness: Mr. Jordan is a 86 year old male with a past medical history of diabetes and hypertension. The patient was admitted to the hospital December 19 for osteomyelitis of the left foot. We are consulted December 22 for antibiotic recommendations regarding osteomyelitis of the left foot. The patient is an 86-year-old male with past medical history as stated above. The patient reports stepping on a nail back in November 10. He states he was unaware of it until later that night. He states he removed the nail insensibly followed up with his PCP on November 13. At that time, he was started on a 10 day course of oral Bactrim and ciprofloxacin. He reported improvement after the 10 day course, but about 3 days after completing the treatment he started to have increasing redness. He was reevaluated by his PCP and restarted on a ten-day course of Bactrim. He was referred to the wound clinic. He also had an x-ray of the left foot that was negative. On December 19 he was seen in the wound clinic and transferred to the emergency department due to concerns for an abscess in the foot because there was purulent drainage from the wound. Upon arrival, the patient was afebrile and hemodynamically stable. He had a mildly elevated white blood cell count 12.9 thousand. His ESR was elevated at 58 and CRP was 37. An MRI of the left foot was completed that showed ostial myelitis of the medial hallux sesamoid and medial cuneiform bone. He on IV vancomycin and IV Zosyn. A superficial wound culture was obtained. He was admitted to the hospital for further evaluation and treatment. Since admission, the patient has been evaluated by podiatry and was taken to the operating room and underwent a left foot I&D with removal of the tibial sesamoid bone and bone biopsy of the medial cuneiform. Operative note was reviewed and there were sent to be purulence. Swab culture was obtained and is growing gram-positive cocci. Tissue culture is pending, but is preliminarily negative. The patient's white blood cell count remained slightly elevated, but improved in comparison to admission. Currently, the patient remains on IV vancomycin and IV Zosyn. We've asked to evaluate and make further recommendations. During my assessment today, the patient endorses a history as stated above. He denies any fevers or chills or rigors. He denies any headache or neck pain. He denies any congestion, earache, or sore throat. He denies any chest pain, shortness of breath, or cough. He denies any nausea, vomiting, diarrhea, or constipation. He denies any abdominal pain or appetite changes. He does not check his blood sugars at home so he is unsure how this infection has affected his blood sugars. He denies any pain in the left foot. He states that the foot was red and swollen and angry looking and there was pus draining from the wound. He denies any redness or streaking up the leg. He denies any oral thrush or any other skin lesions. CC: Miguelina Burns MD Past Med Surg Social Fam HX - Past Medical History Attestation: Yes The following information was validated with the patient. Source: patient, old records reviewed, nursing notes reviewed Medical history: CVA, diabetes, hypertension Psychiatric history: no psych history - Past Surgical History Surgical History: cholecystectomy - Social History Smoking Status: Never smoker Smokeless Tobacco Status: No Alcohol use: none Drug use: none Occupational status: retired Current living situation: Home - Independent Activity Level: Independent ambulation Recent Out of Country Travel Within the Last 8 Weeks: No Exposure or Possible Exposure to Illness During Travel: No - Family History Father Living Status: Hx Family Cardiac Disorders: Yes (Hypertension) Mother Cause of : cva Infectious Disease-CN:Meds Aspirin Enteric Coated [Aspirin EC] 325 mg PO DAILY 12/19/16 [History] Bisoprolol Fumarate [Zebeta] 10 mg PO DAILY 12/19/16 [History] Metformin HCl [Fortamet] 500 mg PO DAILY 12/19/16 [History] 3 Allergy/AdvReac Type Severity Reaction Status Date / Time No Known Allergies Allergy Verified 12/19/16 14:34 All systems: reviewed and no additional remarkable complaints except as stated Exam - Constitutional Vitals: Temp Pulse Resp BP Pulse Ox 97.5 F L 61 16 150/75 95 12/22/16 11:39 12/22/16 11:39 12/22/16 11:39 12/22/16 11:39 12/22/16 11:39 General appearance: average body habitus, cooperative, no acute distress - Head Head exam: Present: atraumatic, normal inspection, normocephalic - Eye Eye exam: Present: EOMI, normal appearance, PERRL Pupils: Present: normal accommodation - ENT ENT exam: Present: mucous membranes moist - Neck Neck exam: Present: normal inspection - Respiratory Respiratory exam: Present: CTAB. Absent: rales, respiratory distress, rhonchi, wheezes - Cardiovascular Cardiovascular exam: Present: RRR, +S1, +S2 - GI/Abdominal GI/Abdominal exam: Present: normal bowel sounds, soft. Absent: distended, tenderness - Extremities Exam Extremities exam: Present: pedal edema (1+ LLE). Absent: joint swelling, tenderness Additional comments: Left foot surgical site with wound VAC intact with sponge well-compressed. Small amount of serous-sanguinous drainage noted in the wound VAC canister. - Neurological Exam Neurological exam: Present: alert, oriented X3, no focal deficits - Psychiatric Psychiatric exam: Present: normal affect, normal mood - Skin Skin exam: Present: dry, intact, normal color, warm Infectious Disease CN: Results - Labs CBC & Chem 7: 12/22/16 02:51 12/22/16 02:51 Cultures: Cultures 12/20/16 17:06 Wound Culture - Preliminary Left Foot Gram Positive Cocci 12/20/16 17:08 Surgical Biopsy Culture - Preliminary Left Foot 12/20/16 17:08 Surgical Biopsy Culture - Preliminary Left Foot Consult Discharge Plan - Plan Referrals: Shelton Lockwood Jr, MD [Primary Care Provider] - - Attending Attestation I examined this patient and my medical decision-making was reviewed with the Resident Physician. I agree with the documented findings, disposition and treatment plan as described except to the extent set forth below. Patient is an 86 year old gentleman who has medical issues mentioned below stepped on a nail back in November. He had cellulitis like picture and was give antibiotics for 3 weeks (does not recall the name) Patient clinically did not improve and came to [place] for evaluation where he had an MRI confirming osteomyelitis. Patient was started on vancomycin and zosyn empirically. Patient was taken to surgery where he had I&D done, intra op cultures no growth to date Agree with broad spectrum antibiotics for now until cultures finalize Patient will need picc line placement Anticipate 6 weeks of antibiotics (will decide which kind based on culture results Monitor weekly labs including cbc, bmp, esr, crp
--- NOTE | 2016-12-22 15:46 | Podiatry Progress Note ---
Date of Encounter: 12/22/16 Time of Encounter: 12:30 - Assessment and Plan (1) Osteomyelitis Current Visit: Yes Status: Acute s/p incision and drainage left foot, excision of tibial sesamoid bone, biopsy of medial cuneiform bone. Dressing removed at bedside and wound vac applied to the left foot. No pus, no odor. WBC: 11.5, ESR: 58, CRP: 37, a febrile Left foot wound culture from 12/20/16 preliminary GPC. Surgical biopsy pending. Appreciate Infectious Disease Consult. Small black simplace wound vac sponge applied and connected to 125 mmhg low continuous suction. Wound vac to be changed every M-W-F. Minimize weight bearing to left foot, will order post op shoe for left foot. make ready worker coordinating discharge planning. Patient may benefit in rehab facility to meet medical needs and allow for a full recovery. Patients recently fractured her left hip and patient and spouse live together at home. Qualifiers: Osteomyelitis type: unspecified type Osteomyelitis location: foot Laterality: left Qualified Code(s): M86.9 - Osteomyelitis, unspecified (2) Diabetes mellitus Current Visit: Yes Status: Chronic Qualifiers: Diabetes mellitus type: type 2 Diabetes mellitus complication status: with neurologic complications Diabetes mellitus complication detail: with autonomic neuropathy Diabetes mellitus intermodal owner operator truck driver insulin use: without intermodal owner operator truck driver use Qualified Code(s): E11.43 - Type 2 diabetes mellitus with diabetic autonomic (poly)neuropathy (3) Cutaneous abscess of left foot Current Visit: Yes Status: Acute Subjective Principal diagnosis: diabetic foot infection Interval history: Patient is s/p incision and drainage left foot, excision of tibial sesamoid bone , and biopsy of medial cuneiform bone by Dr. Mina on 12/20/16. Patient is lying in bed with dressing and dry intact to left foot with son at bedside. No complaints of fever, chills overnight. Per son, patients spouse fractured her left hip and had surgery recently. Patient lives at home with his . Objective - Vital Signs Vital Signs: Vital Signs Temp Pulse Resp BP Pulse Ox 12/22/16 14:20 98.1 F 64 14 103/54 95 12/22/16 11:39 97.5 F L 61 16 150/75 95 12/22/16 07:20 97.9 F 59 14 137/72 95 12/22/16 04:59 97.8 F 88 18 132/71 96 12/21/16 19:35 97.7 F 59 16 155/69 94 Intake and Output 12/21/16 12/22/16 12/22/16 23:59 07:59 15:59 Intake Total 940 / 940 100 / 100 780 / 780 Output Total 650 / 650 350 / 350 Balance 940 / 940 -550 / -550 430 / 430 Intake: IV Fluids 600 / 600 100 / 100 100 / 100 Zosyn 3.375 GM In 100 / 100 100 / 100 100 / 100 Dextrose 5% (Minibag+) 100 ML 100 ML @ 25 mls/hr IVPB Q8H [facility] Rx#: [id number] Vancocin 1,250 MG In 500 / 500 Dextrose 5% 250 ML @ 166. 67 mls/hr IVPB Q24H [facility] Rx#:[id number] Oral 340 / 340 0 / 0 680 / 680 Output: Urine 650 / 650 350 / 350 Other: Meal Dinner Lunch Percent of Meal Consumed 75% 60% # Voids 1 # Bowel Movement Diapers 1 Blood Glucose* 169 114 133 - Exam Exam: General appearance: alert awake oriented X 3. Calm and pleasant, no acute distress.. Vascular: Pedal pulses +1/4 DP/PT , No evidence of cyanosis, pallor or rubor, Edema graded at 1+/4, Skin Temperature warm, No calf pain with manual compression. capillary refill time is immediate to digits. Neurologic: Sensation intact with light touch to foot. . Postop Exam: S/P Sutures intact to incision line, full thickness wound to medial plantar aspect of 1st metatarsal measuring 1cm in length x 1.2 cm in width x 1 cm in depth, bone exposed. No pus, no odor, no fluctuance. light periwound erythema , no streaking, no ascending cellulitis. - Lab Result Diagrams: 12/22/16 02:51 12/22/16 02:51 Labs: Abnormal lab results WBC 11.5 K/mcL (4.3-11.1) H 12/22/16 02:51 ESR 58 mm/hr (0-10) H 12/19/16 15:02 Glucose 103 mg/dL (70-99) H 12/22/16 02:51 POC Glucose 133 (58-89) H 12/22/16 11:41 C-Reactive Protein 37 mg/L (Less than 5) H 12/19/16 15:02 Microbiology, Last 48 Hours 12/20/16 17:06 Wound Culture - Preliminary Left Foot Gram Positive Cocci 12/20/16 17:08 Surgical Biopsy Culture - Preliminary Left Foot 12/20/16 17:08 Surgical Biopsy Culture - Preliminary Left Foot Consult Discharge Plan - Plan Referrals: Shelton Lockwood Jr, MD [Primary Care Provider] -
[2016-12-22] MEDS: Vancomycin 750 MG in D5% in Water 250 ML IVPB SCH (19:36)
[2016-12-23 04:59] LABS: Basophils # 0.1 K/mcL (0.0-0.2); Basophils % 0.8 %; Eosinophils # 0.5 K/mcL (0.0-0.6); Eosinophils % 5.1 %; Hematocrit 42.1 % (37.5-50.1); Hemoglobin 14.2 g/dL (12.9-16.9); Immature Granulocytes % 0.5 % (0-4); Lymphocytes # 2.2 K/mcL (0.6-4.6); Lymphocytes % 21.1 %; Mean Corpuscular HGB Conc 33.7 g/dL (31.6-35.5); Mean Corpuscular Hemoglobin 28.4 pg (28.0-33.3); Mean Corpuscular Volume 84.2 fL (83.0-100.0); Mean Platelet Volume 9.6 fL (9.4-12.4); Monocytes # 1.2 K/mcL (0.0-1.3); Monocytes % 11.1 %; Neutrophils # 6.5 K/mcL (1.6-8.9); Platelet Count 329 K/mcL (140-400); Red Cell Distribution Width 12.6 % (11.5-14.5); Segmented Neutrophils % 61.4 %
[2016-12-23 05:16] LABS: BUN/Creatinine Ratio 10 (6-26); Blood Urea Nitrogen 8 mg/dL (8-26); Calcium 8.9 mg/dL (8.6-10.8); Carbon Dioxide 27 mEq/L (19-29); Chloride 105 mEq/L (98-109); Glucose 107 mg/dL (70-99); Osmolality,Calculated 287 (280-300); Phosphorous 2.8 mg/dL (2.3-4.7); Potassium 3.5 mEq/L (3.5-4.5); Sodium 139 mEq/L (136-145); eGFR For African Americans > 60 (> 60); eGFR For Non-African Americans > 60 (> 60)
[2016-12-23] MEDS: Piperacillin/Tazobactam 3.375 GM in D5% in Water (Mini-Bag+) 100 ML IVPB SCH ×2 (06:14→14:13)
[2016-12-23] MEDS: *HR* Heparin 5,000 UNIT/ML VIAL SQ SCH ×2 (06:14→18:28)
[2016-12-23] MEDS: Vancomycin 750 MG in D5% in Water 250 ML IVPB SCH (06:15)
[2016-12-23] MEDS: Insulin LISPRO 300 UNITS/3 ML VIAL SQ SCH ×4 (07:38→21:53)
--- NOTE | 2016-12-23 12:52 | Podiatry Progress Note ---
Date of Encounter: 12/23/16 Time of Encounter: 12:25 - Assessment and Plan (1) Osteomyelitis Current Visit: Yes Status: Acute s/p incision and drainage left foot, excision of tibial sesamoid bone, biopsy of medial cuneiform bone. Dressing removed at bedside and wound vac applied to the left foot. No pus, no odor. WBC: 10.5, ESR: 58, CRP: 37, a febrile Antibiotic recommendations per Infectious Disease. Wound culture isolated Staph Lugdunesis. Small black simplace wound vac sponge applied and connected to 125 mmhg low continuous suction. Adaptic to applied to exposed bone and tendon prior to placement of wound vac sponge. Wound vac to be changed every M-W-F. Minimize weight bearing to left foot, will order post op shoe for left foot. Apply weight to left heel with assistance of walker. Patient may benefit in rehab facility to meet medical needs and allow for a full recovery. Patients recently fractured her left hip and patient and spouse live together at home. Patient states he does not want to go to a rehab facility. talent acquisition relationship manager at bedside and home health care will be able to see patient and at the same time. Qualifiers: Osteomyelitis type: unspecified type Osteomyelitis location: foot Laterality: left Qualified Code(s): M86.9 - Osteomyelitis, unspecified (2) Diabetes mellitus Current Visit: Yes Status: Chronic Qualifiers: Diabetes mellitus type: type 2 Diabetes mellitus complication status: with neurologic complications Diabetes mellitus complication detail: with autonomic neuropathy Diabetes mellitus local company intermodal truck driver insulin use: without mcfp use Qualified Code(s): E11.43 - Type 2 diabetes mellitus with diabetic autonomic (poly)neuropathy (3) Cutaneous abscess of left foot Current Visit: Yes Status: Acute Subjective Principal diagnosis: diabetic foot infection Interval history: Patient is s/p incision and drainage left foot, excision of tibial sesamoid bone , and biopsy of medial cuneiform bone by Dr. Mina on 12/20/16. Patient is sitting up in bed with wound vac dressing and dry intact to left foot with son at bedside. No complaints of fever, chills overnight. Per son, patients spouse fractured her left hip and had surgery recently. Patient lives at home with his . Patient states home health care is coming out to the house weekly for his . Patient states he does not want to go to a rehab facility. He states he worked with PT and is aware that he is to keep pressure off of the forefoot and use his heel. Patient states they have two walkers at home and does not need another one. Objective - Vital Signs Vital Signs: Vital Signs Temp Pulse Resp BP Pulse Ox 12/23/16 11:08 99.9 F H 52 16 132/73 95 12/23/16 06:50 97.4 F L 51 19 147/68 94 12/23/16 04:36 97.4 F L 51 16 131/62 96 12/22/16 18:57 97.6 F 55 15 135/71 96 12/22/16 14:20 98.1 F 64 14 103/54 95 Intake and Output 12/22/16 12/23/16 12/23/16 23:59 07:59 15:59 Intake Total 500 / 500 350 / 350 220 / 220 Output Total 0 / 0 1000 / 1000 Balance 500 / 500 -650 / -650 220 / 220 Intake: IV Fluids 350 / 350 350 / 350 100 / 100 Zosyn 3.375 GM In 100 / 100 100 / 100 100 / 100 Dextrose 5% (Minibag+) 100 ML 100 ML @ 25 mls/hr IVPB Q8H [facility] Rx#: [id number] Vancocin 750 MG In 250 / 250 250 / 250 Dextrose 5% 250 ML @ 250 mls/hr IVPB Q12H [facility] Rx#: [id number] Oral 150 / 150 0 / 0 120 / 120 Output: Urine 0 / 0 1000 / 1000 Other: Meal Dinner Breakfast Percent of Meal Consumed 40% 75% Stool Size Moderate Stool Characteristics Normal for Patient Stool Color Brown # Bowel Movements 1 Weight 64.6 kg Blood Glucose* 182 222 106 Patient Weight 12/23/16 23:59 Weight 64.6 kg - Exam Exam: General appearance: alert awake oriented X 3. Calm and pleasant, no acute distress.. Vascular: Pedal pulses +1/4 DP/PT , No evidence of cyanosis, pallor or rubor, Edema graded at 1+/4, Skin Temperature warm, No calf pain with manual compression. capillary refill time is immediate to digits. Neurologic: Sensation intact with light touch to foot. . Postop Exam: S/P Left foot: Sutures intact to incision line, wound vac intact and connected to 125 mmhg continuous suction, no drainage in canister, no pus, no odor, no fluctuance. light periwound erythema, no streaking, no ascending cellulitis. - Lab Result Diagrams: 12/23/16 03:49 12/23/16 03:49 Labs: Abnormal lab results ESR 58 mm/hr (0-10) H 12/19/16 15:02 Glucose 107 mg/dL (70-99) H 12/23/16 03:49 POC Glucose 182 (58-89) H 12/22/16 21:47 C-Reactive Protein 37 mg/L (Less than 5) H 12/19/16 15:02 Vancomycin Trough 8.0 mcg/mL (10-20) L 12/22/16 17:44 Microbiology, Last 48 Hours 12/20/16 17:06 Anaerobic Culture - Preliminary Left Foot At this time, no anaerobic growth is present. The culture will be finalized after 5 days of incubation. 12/20/16 17:06 Wound Culture - Final Left Foot Staphylococcus lugdunensis 12/20/16 17:08 Surgical Biopsy Culture - Final Left Foot 12/20/16 17:08 Surgical Biopsy Culture - Final Left Foot Consult Discharge Plan - Plan Referrals: Shelton Lockwood Jr, MD [Primary Care Provider] - Prescriptions: Vancomycin/0.9 % Sod Chloride [Vanco 1 Gram/250 ml-0.9% NaCl] 1 gm IV Q12HR #60 plast..bag
--- NOTE | 2016-12-23 13:09 | Infectious Disease Progress No ---
Date of Encounter: 12/23/16 Time of Encounter: 13:07 - Assessment and Plan (1) Leukocytosis Current Visit: Yes Status: Resolved WBc elevated on admission. Resolved. Likely secondary to left foot OM. Continue to trend. Qualifiers: Leukocytosis type: unspecified Qualified Code(s): D72.829 - Elevated white blood cell count, unspecified (2) Osteomyelitis Current Visit: Yes Status: Acute Location: Left foot medial cuneiform and medial hallux sesamoid. Causative organism unclear. Superficial wound culture obtained intra- operatively shows CONS. Bone cultures are negative. Pathology report shows acute OM of the sesamoid bone. Medial cuneiform negative for osteomyelitis. The patient was started on antibiotics prior to cultures being obtained. Secondary to recent nail puncture to the plantar aspect of the left foot. Failed outpatient oral antibiotic therapy (Cipro/Bactrim x 10 days, followed by additional 10 days of Bactrim). ESR and CRP are elevated at 58 and 37, respectively. MRI of the left foot showed osteomyelitis of the medial hallux sesamoid and medial cuneiform. Podiatry consulted. Status post left foot I & D, removal of tibial sesamoid bone , bone biopsy of the medial cuneiform. Operative report reviewed. Purulence noted. Given the clinical picture, concern for polymicrobial infection despite culture results. Continue Vancomycin IV. Pharmacy to dose. Goal trough approximately 15. Vanc trough 8 last night. Dose-adjustment made by pharmacy. Discontinue Zosyn. Start Levaquin 750mg IV daily. Will likely switch Levaquin to PO on discharge given the oral bioavailability is about 95%. Duration of treatment depends on the clinical picture, but likely 6 weeks of antibiotics. Monitor renal function and for drug toxicity and dose-adjust antibiotics. Continue wound care and activity restrictions as outlined by the podiatry team. Consult director of social work for discharge planning. Consult VAT for PICC line placement. Qualifiers: Osteomyelitis type: unspecified type Osteomyelitis location: foot Laterality: left Qualified Code(s): M86.9 - Osteomyelitis, unspecified (3) Cutaneous abscess of left foot Current Visit: Yes Status: Acute Location: Plantar aspect of left foot. Causative organism CONS, but concern for additional CO given the clinical picture the fact that the patient was on antibiotics prior to cultures being obtained. Podiatry consulted and following. Continue antibiotics as above. (4) Puncture wound of left foot with complication Current Visit: Yes Status: Chronic Patient reports stepping on a nail 11/10/16. Tdap given in November 2016 by PCP. Qualifiers: Encounter type: initial encounter Qualified Code(s): S91.332A - Puncture wound without foreign body, left foot, initial encounter (5) Diabetes mellitus Current Visit: Yes Status: Chronic Diagnosed 20 years ago. Controlled with oral antihyperglycemics. Does not check glucose levels at home. Check HgbA1C. Recommend aggressive glucose monitoring and control to promote wound healing and prevent re-infection. ABIs pending. Qualifiers: Diabetes mellitus type: type 2 Diabetes mellitus complication status: with neurologic complications Diabetes mellitus complication detail: with autonomic neuropathy Diabetes mellitus long-term insulin use: without long-term use Qualified Code(s): E11.43 - Type 2 diabetes mellitus with diabetic autonomic (poly)neuropathy (6) Hypertension Current Visit: Yes Status: Chronic Qualifiers: Hypertension type: essential hypertension Qualified Code(s): I10 - Essential (primary) hypertension - Subjective Interval history: Patient seen and examined. No acute events noted overnight. Patient resting quietly in bed. Denies any acute complaints. Denies any fevers or chills or rigors. Denies any chest pain, shortness of breath, or cough. Denies any nausea , vomiting, diarrhea, or constipation. He does report one episode of loose stool this morning. Denies any abdominal pain and states his appetite is okay. Denies pain at the surgical site. Denies any urinary complaints. Denies any oral thrush or skin lesions. Infect Dis PN-Objective Data - Labs CBC & Chem 7: 12/23/16 03:49 12/23/16 03:49 Labs: Laboratory Results - last 24 hr 12/22/16 12/22/16 12/22/16 16:19 17:44 21:47 WBC RBC Hgb Hct MCV MCH MCHC RDW Plt Count MPV Immature Gran % Seg Neutrophils % Lymphocytes % Monocytes % Eosinophils % Basophils % Neutrophils # Lymphocytes # Monocytes # Eosinophils # Basophils # Sodium Potassium Chloride Carbon Dioxide BUN Creatinine Est GFR ( Amer) Est GFR (Non-Af Amer) BUN/Creatinine Ratio Glucose POC Glucose 160 H 182 H Calculated Osmolality Calcium Phosphorus Magnesium Vancomycin Trough 8.0 L 12/23/16 12/23/16 03:49 03:49 WBC 10.5 RBC 5.00 Hgb 14.2 Hct 42.1 MCV 84.2 MCH 28.4 MCHC 33.7 RDW 12.6 Plt Count 329 MPV 9.6 Immature Gran % 0.5 Seg Neutrophils % 61.4 Lymphocytes % 21.1 Monocytes % 11.1 Eosinophils % 5.1 Basophils % 0.8 Neutrophils # 6.5 Lymphocytes # 2.2 Monocytes # 1.2 Eosinophils # 0.5 Basophils # 0.1 Sodium 139 Potassium 3.5 Chloride 105 Carbon Dioxide 27 BUN 8 Creatinine 0.84 Est GFR ( Amer) > 60 Est GFR (Non-Af Amer) > 60 BUN/Creatinine Ratio 10 Glucose 107 H POC Glucose Calculated Osmolality 287 Calcium 8.9 Phosphorus 2.8 Magnesium 2.0 Vancomycin Trough Cultures: Cultures 12/20/16 17:06 Anaerobic Culture - Preliminary Left Foot At this time, no anaerobic growth is present. The culture will be finalized after 5 days of incubation. 12/20/16 17:06 Wound Culture - Final Left Foot Staphylococcus lugdunensis 12/20/16 17:08 Surgical Biopsy Culture - Final Left Foot 12/20/16 17:08 Surgical Biopsy Culture - Final Left Foot Exam - Constitutional Vitals: Temp Pulse Resp BP Pulse Ox 99.9 F H 52 16 132/73 95 12/23/16 11:08 12/23/16 11:08 12/23/16 11:08 12/23/16 11:08 12/23/16 11:08 General appearance: average body habitus, cooperative, no acute distress - Head Head exam: Present: atraumatic, normal inspection, normocephalic - Eye Eye exam: Present: EOMI, normal appearance, PERRL Pupils: Present: normal accommodation - ENT ENT exam: Present: mucous membranes moist - Neck Neck exam: Present: normal inspection - Respiratory Respiratory exam: Present: CTAB. Absent: rales, respiratory distress, rhonchi, wheezes - Cardiovascular Cardiovascular exam: Present: RRR, +S1, +S2 - GI/Abdominal GI/Abdominal exam: Present: normal bowel sounds, soft. Absent: distended, tenderness - Extremities Exam Extremities exam: Present: normal inspection, pedal edema (Trace LLE). Absent: joint swelling, tenderness Additional comments: Left foot wound VAC dressing intact. Sponge well-compressed. No drainage noted. No erythema or streaking noted up the leg. - Neurological Exam Neurological exam: Present: alert, oriented X3, no focal deficits - Psychiatric Psychiatric exam: Present: normal affect, normal mood - Skin Skin exam: Present: dry, intact, normal color, warm Consult Discharge Plan - Plan Referrals: Shelton Lockwood Jr, MD [Primary Care Provider] - - Attending Attestation I examined this patient and my medical decision-making was reviewed with the Resident Physician. I agree with the documented findings, disposition and treatment plan as described except to the extent set forth below.
[2016-12-23] MEDS ORDERED: Vancomycin 1,000 MG in D5% in Water 250 ML IVPB SCH (15:00)
[2016-12-23] MEDS ORDERED: Lidocaine 1% 20 ML MDV INFILT ONE (15:20)
[2016-12-23] MEDS ORDERED: Levofloxacin 750 MG/150 ML 750 MG/150 ML BAG IVPB SCH (15:30)
--- NOTE | 2016-12-23 17:38 | Internal Med Progress Note ---
Date of Encounter: 12/23/16 Time of Encounter: 10:20 - Assessment and plan (1) Osteomyelitis Current Visit: Yes Status: Acute Assessment and plan: From traumatic puncture wound. Postop day 3 after incision and drainage of left foot with excision of tibial sesamoid bone and biopsy of the medial cuneiform bone. Wound cultures from surgical biopsy are negative. Left foot wound cultures are positive for coagulase-negative staph. As patient received intravenous antibiotics prior to wound cultures, these studies are unreliable as patient did have features of osteomyelitis on MRI and on physical examination. Infectious disease recommends intravenous antibiotics for 4-6 weeks with vancomycin. Also recommend oral Levaquin. limehouse worker will be 5 about this plan and will make arrangements for home IV antibiotic therapy. Patient wishes to go home with home health instead of skilled rehabilitation facility at this time. Will also be discharged on wound VAC. These arrangements will need to be made prior to his discharge from the hospital. Qualifiers: Osteomyelitis type: unspecified type Osteomyelitis location: foot Laterality: left Qualified Code(s): M86.9 - Osteomyelitis, unspecified (2) Diabetes mellitus Current Visit: Yes Status: Chronic Assessment and plan: Fairly controlled. Continue current insulin regimen and monitor blood sugars. 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 Has been well controlled otherwise. 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 Qualifiers: Encounter type: initial encounter Qualified Code(s): S91.332A - Puncture wound without foreign body, left foot, initial encounter - Subjective Interval history: Patient is awake and alert. Appears comfortable. Denies any new complaints at this time. Has been able to ambulate with the help of walker and physical therapy. - Constitutional Vitals: Temp Pulse Resp BP Pulse Ox 97.4 F L 54 18 132/73 96 12/23/16 15:17 12/23/16 15:17 12/23/16 15:17 12/23/16 11:08 12/23/16 15:17 General appearance: Present: cooperative, A&O X 3, no acute distress, answers questions appropriately - Neck Neck exam general surgery: Present: supple, trachea midline. Absent: lymphadenopathy - Respiratory Respiratory exam: Present: CTAB. Absent: accessory muscle use, rales, rhonchi, wheezes - Cardiovascular Cardiovascular exam: Present: RRR, +S1, +S2. Absent: diastolic murmur, gallop, rubs, systolic murmur - GI/Abdominal GI/Abdominal exam: Present: normal bowel sounds, soft, no peritoneal signs. Absent: distended, tenderness - Extremities Exam Extremities exam: Present: warm, radial pulses palpable and symmetrical. Absent : calf tenderness, cyanotic, pedal edema Additional comments: Left foot bandaged with wound VAC in place Internal Medicine: Result - Labs CBC & Chem 7: 12/23/16 03:49 12/23/16 03:49 Labs: Short CBC 12/23/16 Range/Units 03:49 WBC 10.5 (4.3-11.1) K/mcL Hgb 14.2 (12.9-16.9) g/dL Hct 42.1 (37.5-50.1) % Plt Count 329 (140-400) K/mcL Neutrophils # 6.5 (1.6-8.9) K/mcL BMP 12/23/16 03:49 Sodium 139 Potassium 3.5 Chloride 105 Carbon Dioxide 27 BUN 8 Creatinine 0.84 Glucose 107 H Calcium 8.9 Consult Discharge Plan - Plan Referrals: Shelton Lockwood Jr, MD [Primary Care Provider] - Prescriptions: Vancomycin/0.9 % Sod Chloride [Vanco 1 Gram/250 ml-0.9% NaCl] 1 gm IV Q12HR #60 plast..bag
[2016-12-23] MEDS: Levofloxacin 750 MG/150 ML 750 MG/150 ML BAG IVPB SCH (18:24)
[2016-12-23] MEDS: Vancomycin 1,000 MG in D5% in Water 250 ML IVPB SCH (18:24)
[2016-12-24] MEDS: Vancomycin 1,000 MG in D5% in Water 250 ML IVPB SCH ×2 (06:17→16:13)
[2016-12-24] MEDS: *HR* Heparin 5,000 UNIT/ML VIAL SQ SCH ×2 (06:18→19:24)
[2016-12-24] MEDS: Insulin LISPRO 300 UNITS/3 ML VIAL SQ SCH ×4 (07:53→20:36)
[2016-12-24] MEDS ORDERED: Levofloxacin 750 MG/150 ML 750 MG/150 ML BAG IVPB SCH (09:00)
--- NOTE | 2016-12-24 11:28 | Infectious Disease Progress No ---
Date of Encounter: 12/24/16 Time of Encounter: 11:07 - Assessment and Plan (1) Leukocytosis Current Visit: Yes Status: Resolved WBc elevated on admission. Resolved. Likely secondary to left foot OM. Continue to trend. Qualifiers: Leukocytosis type: unspecified Qualified Code(s): D72.829 - Elevated white blood cell count, unspecified (2) Osteomyelitis Current Visit: Yes Status: Acute Location: Left foot medial cuneiform and medial hallux sesamoid. Causative organism unclear. Superficial wound culture obtained intra- operatively shows CONS. Bone cultures are negative. Pathology report shows acute OM of the sesamoid bone. Medial cuneiform negative for osteomyelitis. The patient was started on antibiotics prior to cultures being obtained. Secondary to recent nail puncture to the plantar aspect of the left foot. Failed outpatient oral antibiotic therapy (Cipro/Bactrim x 10 days, followed by additional 10 days of Bactrim). ESR and CRP are elevated at 58 and 37, respectively. MRI of the left foot showed osteomyelitis of the medial hallux sesamoid and medial cuneiform. Podiatry consulted. Status post left foot I & D, removal of tibial sesamoid bone , bone biopsy of the medial cuneiform. Operative report reviewed. Purulence noted. Given the clinical picture, concern for polymicrobial infection despite culture results. Continue Vancomycin IV. Pharmacy to dose. Goal trough approximately 15. Vanc trough 8 last night. Dose-adjustment made by pharmacy. Continue Levaquin 750mg IV daily. Will likely switch Levaquin to PO on discharge given the oral bioavailability is about 95%. Duration of treatment depends on the clinical picture, but likely 6 weeks of antibiotics. Monitor renal function and for drug toxicity and dose-adjust antibiotics. Continue wound care and activity restrictions as outlined by the podiatry team. Consult dialysis social worker for discharge planning. EPIV placed 12/24/16. Weekly CBC, BUN/Cr, ESR, and CRP every Thursday for the duration of treatment. Weekly EPIV care per protocol. Follow up with ID 01/13/17 at 0830. Qualifiers: Osteomyelitis type: unspecified type Osteomyelitis location: foot Laterality: left Qualified Code(s): M86.9 - Osteomyelitis, unspecified (3) Cutaneous abscess of left foot Current Visit: Yes Status: Acute Location: Plantar aspect of left foot. Causative organism CONS, but concern for additional CO given the clinical picture the fact that the patient was on antibiotics prior to cultures being obtained. Podiatry consulted and following. Continue antibiotics as above. (4) Puncture wound of left foot with complication Current Visit: Yes Status: Chronic Patient reports stepping on a nail 11/10/16. Tdap given in November 2016 by PCP. Qualifiers: Encounter type: initial encounter Qualified Code(s): S91.332A - Puncture wound without foreign body, left foot, initial encounter (5) Diabetes mellitus Current Visit: Yes Status: Chronic Diagnosed 20 years ago. Controlled with oral antihyperglycemics. Does not check glucose levels at home. Check HgbA1C. Recommend aggressive glucose monitoring and control to promote wound healing and prevent re-infection. ABIs pending. Qualifiers: Diabetes mellitus type: type 2 Diabetes mellitus complication status: with neurologic complications Diabetes mellitus complication detail: with autonomic neuropathy Diabetes mellitus half-way insulin use: without half-way use Qualified Code(s): E11.43 - Type 2 diabetes mellitus with diabetic autonomic (poly)neuropathy (6) Hypertension Current Visit: Yes Status: Chronic Qualifiers: Hypertension type: essential hypertension Qualified Code(s): I10 - Essential (primary) hypertension - Subjective Interval history: Patient seen and examined. No acute events noted overnight. Patient resting quietly in bed. Denies any acute complaints. Denies any fevers or chills or rigors. Denies any chest pain, shortness of breath, or cough. Denies any nausea , vomiting, diarrhea, or constipation. He does report one episode of loose stool this morning. Denies any abdominal pain and states his appetite is okay. Denies pain at the surgical site. Denies any urinary complaints. Denies any oral thrush or skin lesions. Infect Dis PN-Objective Data - Labs CBC & Chem 7: 12/23/16 03:49 12/23/16 03:49 Labs: Laboratory Results - last 24 hr 12/23/16 12/23/16 12/23/16 06:56 11:13 16:42 POC Glucose 222 H 106 H 160 H 12/23/16 12/24/16 20:09 07:35 POC Glucose 215 H 131 H Cultures: Cultures 12/20/16 17:06 Anaerobic Culture - Preliminary Left Foot At this time, no anaerobic growth is present. The culture will be finalized after 5 days of incubation. 12/20/16 17:06 Wound Culture - Final Left Foot Staphylococcus lugdunensis 12/20/16 17:08 Surgical Biopsy Culture - Final Left Foot 12/20/16 17:08 Surgical Biopsy Culture - Final Left Foot Exam - Constitutional Vitals: Temp Pulse Resp BP Pulse Ox 97.5 F L 54 12 145/61 96 12/24/16 07:37 12/24/16 07:37 12/24/16 07:37 12/24/16 07:37 12/24/16 07:37 General appearance: average body habitus, cooperative, no acute distress - Head Head exam: Present: atraumatic, normal inspection, normocephalic - Eye Eye exam: Present: EOMI, normal appearance, PERRL Pupils: Present: normal accommodation - ENT ENT exam: Present: mucous membranes moist - Neck Neck exam: Present: normal inspection - Respiratory Respiratory exam: Present: CTAB. Absent: rales, respiratory distress, rhonchi, wheezes - Cardiovascular Cardiovascular exam: Present: RRR, +S1, +S2 - GI/Abdominal GI/Abdominal exam: Present: normal bowel sounds, soft. Absent: distended, tenderness - Extremities Exam Extremities exam: Absent: joint swelling, pedal edema, tenderness Additional comments: Left foot wound VAC dressing C/D/I with sponge well-compressed. No drainage noted in the wound VAC canister. - Neurological Exam Neurological exam: Present: alert, oriented X3, no focal deficits - Psychiatric Psychiatric exam: Present: normal affect, normal mood - Skin Skin exam: Present: dry, intact, normal color, warm Consult Discharge Plan - Plan Referrals: Shelton Lockwood Jr, MD [Primary Care Provider] - Prescriptions: Vancomycin/0.9 % Sod Chloride [Vanco 1 Gram/250 ml-0.9% NaCl] 1 gm IV Q12HR #60 plast..bag
--- NOTE | 2016-12-24 12:12 | Discharge Summary ---
Date of Encounter: 12/24/16 Time of Encounter: 10:50 - Discharge Diagnosis (1) Osteomyelitis Priority: Primary Status: Acute Qualifiers: Osteomyelitis type: other acute Osteomyelitis location: foot Laterality: left Qualified Code(s): M86.172 - Other acute osteomyelitis, left ankle and foot (2) Diabetes mellitus Priority: Secondary Status: Chronic Qualifiers: Diabetes mellitus type: type 2 Diabetes mellitus complication status: with neurologic complications Diabetes mellitus complication detail: with autonomic neuropathy Diabetes mellitus termite control technician insulin use: without half-way use Qualified Code(s): E11.43 - Type 2 diabetes mellitus with diabetic autonomic (poly)neuropathy (3) Hypertension Priority: Secondary Status: Chronic Qualifiers: Hypertension type: essential hypertension Qualified Code(s): I10 - Essential (primary) hypertension (4) Puncture wound of left foot with complication Priority: Secondary Status: Chronic Qualifiers: Encounter type: initial encounter Qualified Code(s): S91.332A - Puncture wound without foreign body, left foot, initial encounter - Discharge Medications Prescriptions: Vancomycin/0.9 % Sod Chloride [Vanco 1 Gram/250 ml-0.9% NaCl] 1 gm IV Q12HR #60 plast..bag Lactobacillus Acidophilus [Acidophilus] 1 each PO BID #90 capsule levoFLOXacin [Levofloxacin] 750 mg PO DAILY #45 tablet Home Medications: Aspirin Enteric Coated [Aspirin EC] 325 mg PO DAILY 12/19/16 [History] Bisoprolol Fumarate [Zebeta] 10 mg PO DAILY 12/19/16 [History] Metformin HCl [Fortamet] 500 mg PO DAILY 12/19/16 [History] Vancomycin/0.9 % Sod Chloride [Vanco 1 Gram/250 ml-0.9% NaCl] 1 gm IV Q12HR #60 plast..bag 12/23/16 [Rx] Lactobacillus Acidophilus [Acidophilus] 1 each PO BID #90 capsule 12/24/16 [Rx] levoFLOXacin [Levofloxacin] 750 mg PO DAILY #45 tablet 12/24/16 [Rx] Allergies/Adverse Reactions: 3 Allergy/AdvReac Type Severity Reaction Status Date / Time No Known Allergies Allergy Verified 12/19/16 14:34 Procedures/tests Complete & Pending: Procedures Performed prior 72 hours Category Date Time Status MIN [EV ankle brachial index] Stat Y 12/22/16 07:36 Completed Date of admission: 12/20/16 12:19 Primary care physician: Shelton Lockwood Jr, MD Consults: 12/20/16 16:23 Consult to Physical Therapy [CONS] Routine Comment: Evaluate, develop and implement POC Reason for Consult: s/p surgery. ambulation heel weight bearing left foot in surgical shoe with walker 12/22/16 11:10 Consult to Infectious Diseases [CONS] Routine Consulting Provider: Infectious Disease Melissa Reason for Consult: half-way IV abx for OM Call Completed: Yes 12/23/16 15:20 Consult to Invasive Line Access Team [CONS] Routine Reason for Consult: Picc Line Insertion Line Type: PICC Discharging clinician: More Horn Anticipated date of discharge: 12/24/16 - Patient Status Disposition: Home Health Service Condition: Good Functional capacity at discharge: uses cane/walker Overall status at discharge: patient is progressing back to baseline - Discharge Instructions Instructions: Diabetes Mellitus Type 2 in Adults (DC) Follow Up With: Lele Mina DPM [Partnered Physician] - 12/26/16 11:45 am (in 1 week) Mone Iraheta CNP [Advanced Practice Nurse] - 01/13/17 8:30 am (2 weeks) Hetal Malone CNP [Advanced Practice Nurse] - 12/29/16 10:00 am - Diet and Activity Activity: as per physical therapy, increase activity as tolerated Diet: diabetic diet, low salt diet Hospital course: Mr. Jordan is a 86 year old male patient with history of diabetes mellitus type 2, hypertension, prior CVA, diabetic neuropathy was admitted here with wound involving his left foot that she received in November after stepping on a piece of nail. The patient had been taking outpatient antibiotics but the wound did not heal despite being treated for more than 2 weeks. Patient was then referred to wound care and his great toe had been debrided but there was concern for osteomyelitis and so he was sent to the ER for further evaluation. Patient underwent MRI of his left foot in the ER which showed features suggestive of acute osteomyelitis within the medial hallux sesamoid bone. Podiatry was consulted and patient underwent incision and drainage with excision of tibial sesamoid bone and biopsy of medial cuneiform bone. A wound VAC was placed on the foot and the wound dressed. Patient was evaluated by infectious disease and recommended intravenous antibiotics for long-term to complete treatment course. However wound cultures have not been reliable as a shoe and received antibiotics prior to them being sent. One set of wound culture was positive for coagulase-negative Staphylococcus. At this time, infectious disease recommends that the patient is not on intravenous vancomycin and oral Levaquin to complete 4-6 week treatment course with outpatient follow- up in 2 weeks. Patient has undergone PICC line placement today and will be discharged home with home health and wound care. He does not wish to go to a rehabilitation facility at this time. - Time Spent with Patient Total time spent providing and/or coordinating discharge services: Greater than 30 minutes (35 min) - Constitutional Vitals: Temp Pulse Resp BP Pulse Ox 97.6 F 52 16 147/68 97 12/24/16 11:15 12/24/16 11:15 12/24/16 11:15 12/24/16 11:15 12/24/16 11:15 General appearance: Present: cooperative, A&O X 3, no acute distress, answers questions appropriately - Respiratory Respiratory exam: Present: CTAB. Absent: accessory muscle use, rales, rhonchi, wheezes - Cardiovascular Cardiovascular exam: Present: RRR, +S1, +S2. Absent: diastolic murmur, gallop, rubs, systolic murmur - GI/Abdominal GI/Abdominal exam: Present: normal bowel sounds, soft, no peritoneal signs. Absent: distended, tenderness - Extremities Exam Extremities exam: Present: warm, radial pulses palpable and symmetrical. Absent : calf tenderness, cyanotic, pedal edema Additional comments: left foot bandaged and wound vac in place - Neurological Exam Neurological exam: Present: alert, oriented X3, no focal deficits. Absent: facial droop, speech deficit - Skin Skin exam: Present: dry, intact
--- NOTE | 2016-12-24 12:15 | Physician Discharge Referral ---
Home Health/Hosp Referral Info Transfer to: Home Health Provider in Charge Post Discharge: PCP - Diagnosis (1) Osteomyelitis Priority: Primary Status: Acute (2) Diabetes mellitus Priority: Secondary Status: Chronic (3) Hypertension Priority: Secondary Status: Chronic (4) Puncture wound of left foot with complication Priority: Secondary Status: Chronic - Respiratory Orders Smoking Cessation: Smoking cessation has been advised. For more information, call the [employer] Quit Line at [phone]-HLRX-NOW. - Diet/Nutrition Diet/Nutrition Orders: Cardiac, No Concentrated Sweets (and diabetic) - Activity Activity Orders: Walker - Services Needed Following services are medically necessary services: Nursing, Physical Therapy, Occupational Therapy Home Care Orders: Check Vancomycin trough level on 12/25/16 Also check CBC, BMP, ESR, CRP, vancomycin trough level every Thursday while receiving vancomycin - Transfer Medications Prescriptions: Vancomycin/0.9 % Sod Chloride [Vanco 1 Gram/250 ml-0.9% NaCl] 1 gm IV Q12HR #60 plast..bag Lactobacillus Acidophilus [Acidophilus] 1 each PO BID #90 capsule levoFLOXacin [Levofloxacin] 750 mg PO DAILY #45 tablet Home Medications: Aspirin Enteric Coated [Aspirin EC] 325 mg PO DAILY 12/19/16 [History] Bisoprolol Fumarate [Zebeta] 10 mg PO DAILY 12/19/16 [History] Metformin HCl [Fortamet] 500 mg PO DAILY 12/19/16 [History] Vancomycin/0.9 % Sod Chloride [Vanco 1 Gram/250 ml-0.9% NaCl] 1 gm IV Q12HR #60 plast..bag 12/23/16 [Rx] Lactobacillus Acidophilus [Acidophilus] 1 each PO BID #90 capsule 12/24/16 [Rx] levoFLOXacin [Levofloxacin] 750 mg PO DAILY #45 tablet 12/24/16 [Rx] Allergies/Adverse Reactions: 3 Allergy/AdvReac Type Severity Reaction Status Date / Time No Known Allergies Allergy Verified 12/19/16 14:34 Certification: Further, I certify that my clinical findings support that this patient is homebound (i.e. absences from home require considerable and taxing effort and are for medical reasons or [facility] or infrequently or short duration when for other reasons) because: Homebound Reason: Patient requires assistance of a person or device to safely leave home, Post-surgery restriction and or conditions limit ability to leave home Attestation: My signature below is to certify that this patient is under my care and that I, or nurse practitioner, or a physician's assistant professor of mathematics working with me, has a face-to -face encounter with this patient.
--- NOTE | 2016-12-24 13:09 | Podiatry Progress Note ---
Date of Encounter: 12/24/16 Time of Encounter: 12:30 - Assessment and Plan (1) Osteomyelitis Current Visit: Yes Status: Acute s/p incision and drainage left foot, excision of tibial sesamoid bone, biopsy of medial cuneiform bone. Wound vac intact to left foot, No pus, no odor. Path report: OM of sesamoid, medial cuneiform negative for OM. Bone cultures negative. Antibiotic recommendations per Infectious Disease. Patient will be discharged on IV Vancomycin and PO Levaquin, most likely 6 weeks. Wound vac orders: Small black simplace wound vac sponge connected to 125 mmhg low continuous suction. Adaptic to be applied to exposed bone and tendon prior to placement of wound vac sponge. Wound vac to be changed every M-W-F. Minimize weight bearing to left foot, post op shoe for left foot. Apply weight to left heel with assistance of walker. PT evaluated and provided instruction for patient. Patient would benefit in rehab facility to meet medical needs and allow for a full recovery. Patients recently fractured her left hip and patient and spouse live together at home. Patient states he does not want to go to a rehab facility. Patient is being discharged today with home health care. Wound vac to be changed prior to discharge. Patient will need to f/u with Dr. Mina with in one week of discharge from the hospital. Qualifiers: Osteomyelitis type: other acute Osteomyelitis location: foot Laterality: left Qualified Code(s): M86.172 - Other acute osteomyelitis, left ankle and foot (2) Diabetes mellitus Current Visit: Yes Status: Chronic Qualifiers: Diabetes mellitus type: type 2 Diabetes mellitus complication status: with neurologic complications Diabetes mellitus complication detail: with autonomic neuropathy Diabetes mellitus correction insulin use: without predatory animal exterminator use Qualified Code(s): E11.43 - Type 2 diabetes mellitus with diabetic autonomic (poly)neuropathy (3) Cutaneous abscess of left foot Current Visit: Yes Status: Acute Subjective Principal diagnosis: diabetic foot infection Interval history: Patient is s/p incision and drainage left foot, excision of tibial sesamoid bone , and biopsy of medial cuneiform bone by Dr. Mina on 12/20/16. Patient is sitting up in bed with wound vac dressing and dry intact to left foot. No complaints of fever, chills overnight. Patient lives at home with his . Patient states home health care is coming out to the house weekly for his . Patient states he does not want to go to a rehab facility. He states he worked with PT and is aware that he is to keep pressure off of the forefoot and use his heel. Patient states they have two walkers at home and does not need another one. Objective - Vital Signs Vital Signs: Vital Signs Temp Pulse Resp BP Pulse Ox 12/24/16 11:15 97.6 F 52 16 147/68 97 12/24/16 07:37 97.5 F L 54 12 145/61 96 12/24/16 05:13 97.4 F L 53 16 137/70 97 12/24/16 00:07 97.5 F L 57 18 141/70 97 12/23/16 18:39 97.9 F 54 18 126/66 96 12/23/16 15:17 97.4 F L 54 18 96 Intake and Output 12/23/16 12/24/16 12/24/16 23:59 07:59 15:59 Intake Total 490 / 490 150 / 150 490 / 490 Output Total 0 / 0 0 / 0 Balance 490 / 490 150 / 150 490 / 490 Intake: IV Fluids 250 / 250 150 / 150 250 / 250 Levaquin Premix 750mg/150 150 / 150 mL 750 mg In 150 ml @ 100 mls/hr IVPB Q24H [facility] Rx#:[id number] Vancocin 1,000 MG In 250 / 250 250 / 250 Dextrose 5% 250 ML @ 167 mls/hr IVPB Q12H [facility] Rx#: [id number] Oral 240 / 240 0 / 0 240 / 240 Output: Urine 0 / 0 0 / 0 Wound Drainage 0 / 0 Left Foot 0 / 0 Other: Meal Dinner Breakfast Percent of Meal Consumed 25% 100% Weight 64.6 kg Blood Glucose* 215 131 141 Patient Weight 12/24/16 23:59 Weight 64.6 kg - Exam Exam: General appearance: alert awake oriented X 3. Calm and pleasant, no acute distress.. Vascular: Pedal pulses +1/4 DP/PT , No evidence of cyanosis, pallor or rubor, Edema graded at 1+/4, Skin Temperature warm, No calf pain with manual compression. capillary refill time is immediate to digits. Left great toe is warm. Neurologic: Sensation intact with light touch to foot. . Postop Exam: S/P Left foot: Sutures intact to incision line, wound vac intact and connected to 125 mmhg continuous suction, no drainage in canister, no pus, no odor, no fluctuance. light periwound erythema with macerated skin to the plantar aspect , no streaking, no ascending cellulitis. - Lab Result Diagrams: 12/23/16 03:49 12/23/16 03:49 Labs: Abnormal lab results ESR 58 mm/hr (0-10) H 12/19/16 15:02 Glucose 107 mg/dL (70-99) H 12/23/16 03:49 POC Glucose 141 (58-89) H 12/24/16 11:13 C-Reactive Protein 37 mg/L (Less than 5) H 12/19/16 15:02 Vancomycin Trough 8.0 mcg/mL (10-20) L 12/22/16 17:44 Microbiology, Last 48 Hours 12/20/16 17:06 Anaerobic Culture - Preliminary Left Foot At this time, no anaerobic growth is present. The culture will be finalized after 5 days of incubation. 12/20/16 17:06 Wound Culture - Final Left Foot Staphylococcus lugdunensis 12/20/16 17:08 Surgical Biopsy Culture - Final Left Foot 12/20/16 17:08 Surgical Biopsy Culture - Final Left Foot Consult Discharge Plan - Plan Instructions: Diabetes Mellitus Type 2 in Adults (DC) Referrals: Lele Mina DPM [Partnered Physician] - 12/26/16 11:45 am (in 1 week) Mone Iraheta CNP [Advanced Practice Nurse] - 01/13/17 8:30 am (2 weeks) Hetal Malone CNP [Advanced Practice Nurse] - 12/29/16 10:00 am Prescriptions: Vancomycin/0.9 % Sod Chloride [Vanco 1 Gram/250 ml-0.9% NaCl] 1 gm IV Q12HR #60 plast..bag Lactobacillus Acidophilus [Acidophilus] 1 each PO BID #90 capsule levoFLOXacin [Levofloxacin] 750 mg PO DAILY #45 tablet
--- NOTE | 2016-12-24 14:55 | Arterial Study Report ---
LE Arterial Physiologic Study Patient Name:Jewel Jordan Order Number:[id number] Procedure Date:12/22/2016 Date:1930ge:86 yrs Gender:Male Lt BP:136 / mmHg Rt.BP:137 / mmHgHeart Rate: Location:[facility] Room #: 3A11 Shook Machine Operator:Jaime Tirado JAKE Referring MD:Miguelina Burns MD welder metal fab:Shelton Lockwood MD Reading MD:Torsten Lange MD Primary Indications:PVD Risk Factors Yes/No Hypertension Yes Diabetes Yes Hypercholesterolemia Yes Impressions: Left MIN 0.73 with moderately diminished waveform. The right has moderately diminished waveforms, but is noncompressible. The right great toe index is 0.74. Bilateral moderate disease. noncompressible vessels [place] underlying disease Recommendations: After imaging the patient returned to their room. Findings LE Arterial Physiologic Exam: Segmental Pressures: Right: The right great toe pressure is 102 mmHg with an index of 0.74. The posterior tibial and dorsalis pedis pressure on the right may be artificially elevated due to vessel calcification. Left: The left posterior tibial pressure is 125 mmHg with an index of 0.91. The left dorsalis pedis pressure is 100 mmHg with an index of 0.73. PVR: Right: The PVR waveforms are normal in the right 1st digit and moderately diminished in the right ankle. Left: The PVR waveforms are mildly diminished in the left ankle. Prior Study: No prior study available for comparison. Segmental Pressures Side Location Pressure Index Result Right Posterior Tibial noncompressible Right Dorsalis Pedis noncompressible Right Great Toe 102 0.74 Normal Left Posterior Tibial 125 0.91 Mildly Diminished Left Dorsalis Pedis 100 0.73 Moderately Diminished Ankle Brachial Index Right Systolic Diastolic MIN Brachial 137 Toe 102 0.74 Left Systolic Diastolic MIN Brachial 136 0.91 Dorsalis Pedis 100 0.73 Posterior Tibial 125 0.91 Updated by Torsten Lange MD on 12/24/2016 2:48:25 PM with Status of Final electronically signed on 12/24/2016 2:48:45 PM with status of Final
[2016-12-24] MEDS: Levofloxacin 750 MG/150 ML 750 MG/150 ML BAG IVPB SCH (19:26)
[2016-12-25] MEDS: Vancomycin 1,000 MG in D5% in Water 250 ML IVPB SCH ×2 (05:38→16:28)
[2016-12-25] MEDS: *HR* Heparin 5,000 UNIT/ML VIAL SQ SCH (05:38)
[2016-12-25] MEDS: Insulin LISPRO 300 UNITS/3 ML VIAL SQ SCH ×2 (07:31→12:01)
--- NOTE | 2016-12-25 11:44 | Infectious Disease Progress No ---
Date of Encounter: 12/25/16 Time of Encounter: 11:42 - Assessment and Plan (1) Leukocytosis Current Visit: Yes Status: Resolved WBc elevated on admission. Resolved. Likely secondary to left foot OM. Continue to trend. Qualifiers: Leukocytosis type: unspecified Qualified Code(s): D72.829 - Elevated white blood cell count, unspecified (2) Osteomyelitis Current Visit: Yes Status: Acute Location: Left foot medial cuneiform and medial hallux sesamoid. Causative organism unclear. Superficial wound culture obtained intra- operatively shows CONS. Bone cultures are negative. Pathology report shows acute OM of the sesamoid bone. Medial cuneiform negative for osteomyelitis. The patient was started on antibiotics prior to cultures being obtained. Secondary to recent nail puncture to the plantar aspect of the left foot. Failed outpatient oral antibiotic therapy (Cipro/Bactrim x 10 days, followed by additional 10 days of Bactrim). ESR and CRP are elevated at 58 and 37, respectively. MRI of the left foot showed osteomyelitis of the medial hallux sesamoid and medial cuneiform. Podiatry consulted. Status post left foot I & D, removal of tibial sesamoid bone , bone biopsy of the medial cuneiform. Operative report reviewed. Purulence noted. Given the clinical picture, concern for polymicrobial infection despite culture results. Continue Vancomycin IV. Pharmacy to dose. Goal trough approximately 15. Vanc trough 8 last night. Dose-adjustment made by pharmacy. Continue Levaquin 750mg IV daily. Will likely switch Levaquin to PO on discharge given the oral bioavailability is about 95%. Duration of treatment depends on the clinical picture, but likely 6 weeks of antibiotics. Monitor renal function and for drug toxicity and dose-adjust antibiotics. Continue wound care and activity restrictions as outlined by the podiatry team. Consult social insurance specialist for discharge planning. EPIV placed 12/24/16. Weekly CBC, BUN/Cr, ESR, and CRP every Thursday for the duration of treatment. Weekly EPIV care per protocol. Follow up with ID 01/13/17 at 0830. Qualifiers: Osteomyelitis type: other acute Osteomyelitis location: foot Laterality: left Qualified Code(s): M86.172 - Other acute osteomyelitis, left ankle and foot (3) Cutaneous abscess of left foot Current Visit: Yes Status: Acute Location: Plantar aspect of left foot. Causative organism CONS, but concern for additional CO given the clinical picture the fact that the patient was on antibiotics prior to cultures being obtained. Podiatry consulted and following. Continue antibiotics as above. (4) Puncture wound of left foot with complication Current Visit: Yes Status: Chronic Patient reports stepping on a nail 11/10/16. Tdap given in November 2016 by PCP. Qualifiers: Encounter type: initial encounter Qualified Code(s): S91.332A - Puncture wound without foreign body, left foot, initial encounter (5) Diabetes mellitus Current Visit: Yes Status: Chronic Diagnosed 20 years ago. Controlled with oral antihyperglycemics. Does not check glucose levels at home. Check HgbA1C. Recommend aggressive glucose monitoring and control to promote wound healing and prevent re-infection. ABIs pending. Qualifiers: Diabetes mellitus type: type 2 Diabetes mellitus complication status: with neurologic complications Diabetes mellitus complication detail: with autonomic neuropathy Diabetes mellitus longterm insulin use: without longterm use Qualified Code(s): E11.43 - Type 2 diabetes mellitus with diabetic autonomic (poly)neuropathy (6) Hypertension Current Visit: Yes Status: Chronic Qualifiers: Hypertension type: essential hypertension Qualified Code(s): I10 - Essential (primary) hypertension - Subjective Interval history: Patient seen and examined. No acute events noted overnight. Patient resting quietly in bed,awaiting discharge which has been delayed due to non-functioning home wound VAC. Denies any acute complaints. Denies any fevers or chills or rigors. Denies any chest pain, shortness of breath, or cough. Denies any nausea , vomiting, diarrhea, or constipation. Denies any abdominal pain and states his appetite is okay. Denies pain at the surgical site. Denies any urinary complaints. Denies any oral thrush or skin lesions. Infect Dis PN-Objective Data - Labs CBC & Chem 7: 12/23/16 03:49 12/23/16 03:49 Labs: Laboratory Results - last 24 hr 12/24/16 12/24/16 12/25/16 17:14 20:14 07:30 POC Glucose 202 H 174 H 131 H Cultures: Cultures 12/20/16 17:06 Anaerobic Culture - Preliminary Left Foot No anaerobes were recovered. 12/20/16 17:06 Wound Culture - Final Left Foot Staphylococcus lugdunensis 12/20/16 17:08 Surgical Biopsy Culture - Final Left Foot 12/20/16 17:08 Surgical Biopsy Culture - Final Left Foot Exam - Constitutional Vitals: Temp Pulse Resp BP Pulse Ox 97.5 F L 48 14 145/69 97 12/25/16 11:40 12/25/16 11:40 12/25/16 11:40 12/25/16 11:40 12/25/16 11:40 General appearance: average body habitus, cooperative, no acute distress - Head Head exam: Present: atraumatic, normal inspection, normocephalic - Eye Eye exam: Present: EOMI, normal appearance, PERRL Pupils: Present: normal accommodation - ENT ENT exam: Present: mucous membranes moist - Neck Neck exam: Present: normal inspection - Respiratory Respiratory exam: Present: CTAB. Absent: rales, respiratory distress, rhonchi, wheezes - Cardiovascular Cardiovascular exam: Present: RRR, +S1, +S2 - GI/Abdominal GI/Abdominal exam: Present: normal bowel sounds, soft. Absent: distended, tenderness - Extremities Exam Extremities exam: Absent: joint swelling, pedal edema, tenderness Additional comments: Wound VAC dressing to the left medial foot noted with wound VAC dressing intact and sponge well-compressed. MAceration of a small area of skin noted to the plantar aspect. No drainage noted in the canister. - Neurological Exam Neurological exam: Present: alert, oriented X3, no focal deficits - Psychiatric Psychiatric exam: Present: normal affect, normal mood - Skin Skin exam: Present: dry, intact, normal color, warm - Additional findings Additional findings: EPIV noted to the RUE with transparent dressing C/D/I. Consult Discharge Plan - Plan Instructions: Diabetes Mellitus Type 2 in Adults (DC) Referrals: Lele Mina DPM [Partnered Physician] - 12/26/16 11:45 am (in 1 week) Mone Iraheta CNP [Advanced Practice Nurse] - 01/13/17 8:30 am (2 weeks) Hetal Malone CNP [Advanced Practice Nurse] - 12/29/16 10:00 am Prescriptions: Vancomycin/0.9 % Sod Chloride [Vanco 1 Gram/250 ml-0.9% NaCl] 1 gm IV Q12HR #60 plast..bag Lactobacillus Acidophilus [Acidophilus] 1 each PO BID #90 capsule levoFLOXacin [Levofloxacin] 750 mg PO DAILY #45 tablet
--- NOTE | 2016-12-25 15:04 | Podiatry Progress Note ---
Date of Encounter: 12/25/16 Time of Encounter: 10:30 - Assessment and Plan (1) Osteomyelitis Current Visit: Yes Status: Acute s/p incision and drainage left foot, excision of tibial sesamoid bone, biopsy of medial cuneiform bone. Wound vac was removed and reapplied for the third time over the past 24 hours due to portable wound vac signaling a leak. White foam was applied and the portable unit continues to alarm for a leak. The [facility] unit does not recognize a leak. New portable wound vac ordered. Per nurse the new unit is functioning properly. Continue wound vac as ordered. Decreased macerated skin noted to the plantar aspect. Medial wound edge with small area of necrotic skin, no odor. Will continue to closely monitor wound. Path report: OM of sesamoid, medial cuneiform negative for OM. Bone cultures negative. Antibiotic recommendations per Infectious Disease. Patient will be discharged on IV Vancomycin and PO Levaquin, most likely 6 weeks. Wound vac orders: Small black simplace wound vac sponge connected to 125 mmhg low continuous suction. Adaptic to be applied to exposed bone prior to placement of wound vac sponge. Wound vac to be changed every M-W-. Minimize weight bearing to left foot, post op shoe for left foot. Apply weight to left heel with assistance of walker. PT evaluated and provided instruction for patient. Patient would benefit in rehab facility to meet medical needs and allow for a full recovery. Patients recently fractured her left hip and patient and spouse live together at home. Patient states he does not want to go to a rehab facility. Patient is being discharged today with home health care. Patient will need to f/u with Dr. Mina in one week of discharge from the hospital. Qualifiers: Osteomyelitis type: other acute Osteomyelitis location: foot Laterality: left Qualified Code(s): M86.172 - Other acute osteomyelitis, left ankle and foot (2) Diabetes mellitus Current Visit: Yes Status: Chronic Qualifiers: Diabetes mellitus type: type 2 Diabetes mellitus complication status: with neurologic complications Diabetes mellitus complication detail: with autonomic neuropathy Diabetes mellitus extermination supervisor insulin use: without penitentiary use Qualified Code(s): E11.43 - Type 2 diabetes mellitus with diabetic autonomic (poly)neuropathy (3) Cutaneous abscess of left foot Current Visit: Yes Status: Acute Subjective Principal diagnosis: diabetic foot infection Interval history: Patient is s/p incision and drainage left foot, excision of tibial sesamoid bone , and biopsy of medial cuneiform bone by Dr. Mina on 12/20/16. Patient is sitting up in bed with wound vac dressing, dry and intact to left foot. No complaints of fever, chills overnight. Patient was supposed to be discharged home last night with home health care for wound vac, IV antibiotics and oral antibiotics. Patient was kept overnight due to the portable wound vac not functioning properly. Per nurse the wound vac was changed twice and the portable unit kept alarming that there was a leak. The hospital wound vac unit did not recognize a leak and the wound vac was functioning properly. [facility] was called by the nurse and they tested the portable unit and stated they did not see any malfunction. Objective - Vital Signs Vital Signs: Vital Signs Temp Pulse Resp BP Pulse Ox 12/25/16 11:40 97.5 F L 48 14 145/69 97 12/25/16 07:32 97.5 F L 54 14 151/75 97 12/25/16 04:18 97.9 F 60 15 164/74 97 12/24/16 23:53 97.7 F 50 14 133/56 98 12/24/16 18:55 97.5 F L 54 16 145/64 98 Intake and Output 12/24/16 12/25/16 12/25/16 23:59 07:59 15:59 Intake Total 860 / 860 450 / 450 Output Total 250 / 250 750 / 750 Balance 610 / 610 -300 / -300 Intake: IV Fluids 400 / 400 250 / 250 Levaquin Premix 750mg/150 150 / 150 mL 750 mg In 150 ml @ 100 mls/hr IVPB Q24H [facility] Rx#:[id number] Vancocin 1,000 MG In 250 / 250 250 / 250 Dextrose 5% 250 ML @ 167 mls/hr IVPB Q12H [facility] Rx#: [id number] Oral 460 / 460 200 / 200 Output: Urine 250 / 250 750 / 750 Wound Drainage 0 / 0 0 / 0 Left Foot 0 / 0 0 / 0 Left foot wound 2 0 / 0 Other: Meal Dinner Percent of Meal Consumed 75% Blood Glucose* 174 131 137 - Exam Exam: General appearance: alert awake oriented X 3. Calm and pleasant, no acute distress.. Vascular: Pedal pulses +1/4 DP/PT , No evidence of cyanosis, pallor or rubor, Edema graded at 1+/4, Skin Temperature warm, No calf pain with manual compression. capillary refill time is immediate to digits. Neurologic: Sensation intact with light touch to foot. . Postop Exam: S/P Sutures intact to incision line, full thickness wound to medial plantar aspect of 1st metatarsal, left foot measuring 1cm in length x 1.2 cm in width x 1 cm in depth, bone exposed. Medial wound edge with small area of necrotic skin. No pus, no odor, no fluctuance. light periwound erythema, no streaking, no ascending cellulitis. Decreased macerated skin to the plantar aspect of the left foot. - Lab Result Diagrams: 12/23/16 03:49 12/23/16 03:49 Labs: Abnormal lab results ESR 58 mm/hr (0-10) H 12/19/16 15:02 Glucose 107 mg/dL (70-99) H 12/23/16 03:49 POC Glucose 137 (58-89) H 12/25/16 11:39 C-Reactive Protein 37 mg/L (Less than 5) H 12/19/16 15:02 Vancomycin Trough 8.0 mcg/mL (10-20) L 12/22/16 17:44 Microbiology, Last 48 Hours 12/20/16 17:06 Anaerobic Culture - Preliminary Left Foot No anaerobes were recovered. Consult Discharge Plan - Plan Instructions: Diabetes Mellitus Type 2 in Adults (DC) Referrals: Lele Mina DPM [Partnered Physician] - 12/26/16 11:45 am (in 1 week) Mone Iraheta CNP [Advanced Practice Nurse] - 01/13/17 8:30 am (2 weeks) Hetal Malone CNP [Advanced Practice Nurse] - 12/29/16 10:00 am Prescriptions: Vancomycin/0.9 % Sod Chloride [Vanco 1 Gram/250 ml-0.9% NaCl] 1 gm IV Q12HR #60 plast..bag Lactobacillus Acidophilus [Acidophilus] 1 each PO BID #90 capsule levoFLOXacin [Levofloxacin] 750 mg PO DAILY #45 tablet
--- NOTE | 2016-12-25 15:18 | Internal Med Progress Note ---
Date of Encounter: 12/25/16 Time of Encounter: 11:00 - Assessment and plan (1) Osteomyelitis Current Visit: Yes Status: Acute Assessment and plan: Continue IV antibiotics as recommended by infectious disease. Plan to discharge to home health once all the equipment is in place Qualifiers: Osteomyelitis type: other acute Osteomyelitis location: foot Laterality: left Qualified Code(s): M86.172 - Other acute osteomyelitis, left ankle and foot (2) Diabetes mellitus Current Visit: Yes Status: Chronic Assessment and plan: Continue current insulin regimen. Qualifiers: Diabetes mellitus type: type 2 Diabetes mellitus complication status: with neurologic complications Diabetes mellitus complication detail: with autonomic neuropathy Diabetes mellitus parts counterman insulin use: without shelter use Qualified Code(s): E11.43 - Type 2 diabetes mellitus with diabetic autonomic (poly)neuropathy (3) Hypertension Current Visit: Yes Status: Chronic Assessment and plan: Has been elevated today. We will monitor and adjust medications accordingly. Qualifiers: Hypertension type: essential hypertension Qualified Code(s): I10 - Essential (primary) hypertension (4) Puncture wound of left foot with complication Current Visit: Yes Status: Chronic Qualifiers: Encounter type: initial encounter Qualified Code(s): S91.332A - Puncture wound without foreign body, left foot, initial encounter - Subjective Interval history: Patient feels good. No new complaints at this time. Was discharged yesterday but could not leave due to issues with wound VAC. - Constitutional Vitals: Temp Pulse Resp BP Pulse Ox 97.5 F L 48 14 145/69 97 12/25/16 11:40 12/25/16 11:40 12/25/16 11:40 12/25/16 11:40 12/25/16 11:40 General appearance: Present: cooperative, A&O X 3, no acute distress, answers questions appropriately - Respiratory Respiratory exam: Present: CTAB. Absent: accessory muscle use, rales, rhonchi, wheezes - Cardiovascular Cardiovascular exam: Present: RRR, +S1, +S2. Absent: diastolic murmur, gallop, rubs, systolic murmur - GI/Abdominal GI/Abdominal exam: Present: normal bowel sounds, soft, no peritoneal signs. Absent: distended, tenderness - Extremities Exam Extremities exam: Present: warm, radial pulses palpable and symmetrical. Absent : calf tenderness, cyanotic, pedal edema Additional comments: Wound VAC in place on left foot Internal Medicine: Result - Labs CBC & Chem 7: 12/23/16 03:49 12/23/16 03:49 Consult Discharge Plan - Plan Instructions: Diabetes Mellitus Type 2 in Adults (DC) Referrals: Lele Mina DPM [Partnered Physician] - 12/26/16 11:45 am (in 1 week) Mone Iraheta CNP [Advanced Practice Nurse] - 01/13/17 8:30 am (2 weeks) Hetal Malone CNP [Advanced Practice Nurse] - 12/29/16 10:00 am Prescriptions: Vancomycin/0.9 % Sod Chloride [Vanco 1 Gram/250 ml-0.9% NaCl] 1 gm IV Q12HR #60 plast..bag Lactobacillus Acidophilus [Acidophilus] 1 each PO BID #90 capsule levoFLOXacin [Levofloxacin] 750 mg PO DAILY #45 tablet
[2016-12-25 15:21] VITALS: BP 134/62
[2016-12-25] MEDS ORDERED: Aminoglycoside Consult 1 EACH MC ONE (18:34)
== END 2016-12-25 18:35 | disposition home health service (06) | DRG 629 ==
LOC: 3ANU 14:25 → EMEROO 14:25 → 3ANU 20:12 → SUATTDRO 12-20 12:19
PROVIDERS: ADMIT Internal Medicine; ATTEND Internal Medicine

== ENCOUNTER 2017-02-26 09:02 | Inpatient (IN) ==
[2017-02-26] MEDS ORDERED: Dexamethasone 4 MG/ML VIAL ONE (09:23)
[2017-02-26] MEDS ORDERED: *HR* Propofol 200 MG/20 ML VIAL IVP ONE (09:23)
[2017-02-26] MEDS ORDERED: Lidocaine -MPF 2% 2 ML VIAL ONE (09:24)
[2017-02-26] MEDS ORDERED: Ondansetron 4 MG/2 ML VIAL ONE (09:24)
[2017-02-26] MEDS ORDERED: Propofol 500 MG/50 ML INFUS..BTL ONE (09:24)
--- NOTE | 2017-02-26 09:35 | Anesthesia Evaluation PreOp ---
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 HbA1c = 5.3/Avg gluc = 105) Anesthesia History: No Prior Anesthetic Complications, Past Anesthesia (zi, Cataracts, TURP-neurological nocturnal enuresis 1997. L-foot surgery 02/2017) Alcohol Use: none Drug use: none Medications and Allergies Aspirin Enteric Coated [Aspirin EC] 325 mg PO DAILY 12/19/16 [History] Bisoprolol Fumarate [Zebeta] 10 mg PO DAILY 12/19/16 [History] Clopidogrel Bisulfate [Plavix] 75 mg PO DAILY #30 tablet 02/02/17 [Rx] levoFLOXacin [Levaquin] 750 mg PO DAILY 02/02/17 [History] metFORMIN [Glucophage] 500 mg PO 0800 02/18/17 [History] Collagenase Oint [Santyl] 1 appl TP DAILY 02/26/17 [History] 3 Allergy/AdvReac Type Severity Reaction Status Date / Time No Known Allergies Allergy Verified 02/26/17 09:31 - Meds/Allergy Pre-op Review Medications Reviewed: Yes Allergies Reviewed: Yes Beta Blockers on Current Med List: No Anesthesia Results - Labs Laboratory Tests 01/26/17 01/30/17 02/09/17 08:15 15:39 10:45 WBC Hgb Hct Plt Count PT 12.9 H INR 1.2 APTT 32.0 Sodium 140 Potassium 3.6 Chloride 105 Carbon Dioxide 24 BUN 13 Creatinine 0.95 Est GFR (Non-Af Amer) > 60 Glucose 164 H Est Mean Plasma Glucose Hemoglobin A1c 02/09/17 02/24/17 10:45 10:20 WBC 12.2 H Hgb 13.6 Hct 40.4 Plt Count 253 PT INR APTT Sodium Potassium Chloride Carbon Dioxide BUN Creatinine Est GFR (Non-Af Amer) Glucose Est Mean Plasma Glucose 105 Hemoglobin A1c 5.3 - Imaging EKG: image reviewed (54bpm SB) Anesthesia Exam O2 Sat Height 1.7 m Height 1.7 m Weight 70.76 kg Weight 70.76 kg O2 Sat by Pulse Oximetry 95 Vital Signs Temp Pulse Resp BP Pulse Ox 97.7 F 58 18 123/74 95 02/26/17 09:36 02/26/17 09:36 02/26/17 09:36 02/26/17 09:36 02/26/17 09:36 Height: 5'7" Weight: 156# BMI = 24 NPO (# of Hours): MNoc - HEENT Pupil (Motor): Pupils equal, EOMI Mallampati: II Teeth: Edentulous Oral Opening: Greater than 3 - AGATE SETTER LOC: Oriented AGATE SETTER Motor: Normal RUE, Normal LUE, Normal RLE, Normal LLE, Normal Face AGATE SETTER Sensory: Normal: RUE, LUE, RLE, LLE, Face - Cardiac Rhythm: Regular Murmur: None - Pulmonary Breath Sounds: bilateral Clear Respiratory Effort: Symmetrical Anesthesia Assess/Plan ASA Score: 2 Modified Thong Scale for Level of Consciousness: Cooperative, oriented, and tranquil Anesthetic Plan: MAC Monitoring Plan: Standard Monitors Recovery Plan: Other Anes Supervising Prov Stmt: Pt seen/evaluated, R&B Discussed, questions answered and consent obtained. Jace Camacho MD
[2017-02-26] MEDS ORDERED: Lidocaine -MPF 1% 2 ML VIAL ID ONE (09:44)
[2017-02-26] MEDS ORDERED: Plasma-Lyte A (PH 7.4) 1,000 ML IVC SCH (09:45)
[2017-02-26] MEDS ORDERED: Bupivacaine/Clonidine Syringe 1 EACH SYRINGE ONE ×2 (09:53→11:11)
[2017-02-26] MEDS ORDERED: CeFAZolin Pre 2,000 MG/100 ML 2,000 MG/100 ML BAG IVPB ONE (09:58)
--- NOTE | 2017-02-26 09:59 | History & Physical Report ---
Date of Encounter: 02/26/17 Time of Encounter: 09:59 24 Hour HP Update - Instructions Instructions: If the History and Physical is less than 30 days old and was completed prior to A.M. admission and or procedure and has NOT been updated on calendar day of procedure please complete this update prior to performing procedure. - Update Patient reports changes in Medical Condition: No Changes in examination, assessment, or condition: No Changes in Medication: No Preop tests/diagnostics Reviewed: Yes Pre-Op MRSA Screen: Negative Surgery Remains Indicated: Yes Consent for Planned Operative Procedure(s) Verified: Yes
[2017-02-26] MEDS ORDERED: EPHEDrine 50 MG/ML VIAL ONE (10:33)
[2017-02-26] MEDS ORDERED: *HR* FentaNYL (PF) 100 MCG/2 ML VIAL ONE (10:41)
--- NOTE | 2017-02-26 11:53 | Discharge Summary ---
Outpatient Proc Discharge Plan - Plan Additional Instructions: #1 keep dressing dry clean and intact. #2 should dressing becomes soiled or saturated contact Dr. Stone immediately #3 elevated left foot #4 no weight 2 left forefoot over the incision. Weight bearing to left heel only to balance with assistance only #5 resume diabetic diet as tolerated Home Medications: Aspirin Enteric Coated [Aspirin EC] 325 mg PO DAILY 12/19/16 [History] Bisoprolol Fumarate [Zebeta] 10 mg PO DAILY 12/19/16 [History] Clopidogrel Bisulfate [Plavix] 75 mg PO DAILY #30 tablet 02/02/17 [Rx] levoFLOXacin [Levaquin] 750 mg PO DAILY 02/02/17 [History] metFORMIN [Glucophage] 500 mg PO 0800 02/18/17 [History] Collagenase Oint [Santyl] 1 appl TP DAILY 02/26/17 [History]
--- NOTE | 2017-02-26 15:03 | Orthopedic Operative Note ---
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 A sign in procedure was performed. Patient was then transferred to the surgical table positioned properly safely securely. The left foot was elevated on a foam block. No tourniquet was used. Anesthetic timeout was taken. Patient was sedated. Left ankle prepped with alcohol 3 times. Modified ankle block carried out without difficulty or complication. The left foot was then prepped and draped in usual sterile manner. Surgical timeout was taken. A 6 cm wound, from proximal to distal and 3 cm from medial to lateral was noted in the plantar medial aspect of the first metatarsophalangeal joint where the distal aspect of the first MTPJ was visualized. The bone/ joint is exposed. Flexor tendon was compromised. Toe is in a extended position. Surprisingly there is no active purulent drainage or fluctuance. Incision was then placed medial aspect of the first metatarsal proximal one third shaft and brought distally to the metatarsal phalangeal joint and then 2 circumferential incisions about the ulceration from the surgical neck to the base of the proximal phalanx. Sharp dissection was continued down the periosteum with a neck of the first metatarsal was identified and soft tissue was retracted osteotomy was in place with a command power saw from medial to lateral protecting all soft tissue tension was turned to the base of the proximal phalanx with the same osteotomy was performed from medial to lateral after reflecting all soft tissue away from the base of the proximal phalanx. At that point the ulceration and the joint was resected in toto. Flexor tendon was noted to be compromised and ruptured. Fortunately again there is no evidence of active necrosis or purulent drainage. There is no odor. Surveillance cultures were taken aerobic and anaerobic the wound. The wound was thoroughly irrigated and inspected. Attempts to close the wound and salvage the toe, proved difficult at best therefore to give the patient a plantigrade functional foot amputation of the toe was performed. That juncture 2 semielliptical incisions were placed around the base of the toe. In the lateral aspect of the base of the digit. The remaining soft tissue was reflected off the osseous structure of the distal portion of the proximal phalanx and the toe was disarticulated. We are now left with a completely clean wound. The soft tissue and flaps were reconfigured and adjacent tissue transfer was then performed. The wound was flushed again remaining service in the distal aspect of the first metatarsal was remodeled with the Chay nasal rasp. The bone was of normal color texture and density. The sesamoid apparatus was noted to be completely intact as well and without evidence of infection. At that juncture the extensor tendon was then grasped and then sewed to the remaining flexor tendon on the plantar aspect covering the distal aspect of the first metatarsal. Prior to tendon repair the wound was thoroughly debrided with a SterraClimb ultrasonic debrider as well as irrigated with a bulb syringe. After completion of the tendon anastomosis the wound was irrigated again. There was no active bleeding necessitated the use of Bovie or ligature. That juncture the flaps were reconfigured dorsally and medially by mobilizing the dorsal flap plantarly and medially and the plantar flap distally and laterally. We were then found to be without tension and skin sutures were placed using 3-0 Prolene and skin arminda augment the wound. Prior to closure a TLS drain was placed proximally. Prior to closure the wound was sprayed with PRP. After skin closure was complete wound was dressed with Adaptic on the incisional wound as well as the lateral aspect of the left foot which has a ongoing ulceration. Estimated blood loss less than 20 mL. Complications encountered none. Patient was then sent holding room in good condition and then onto the floor for observation because of this complex wound and need for intravenous antibiotics results of surveillance cultures were taken intraoperatively. We will continue intravenous antibiotics until cultures are complete. 02/26/17 15:03
[2017-02-26] MEDS ORDERED: Dextrose Gel 15 GM PO PRN ×2 (15:15)
[2017-02-26] MEDS ORDERED: D5% in Water 1,000 ML IVC PRN (15:15)
[2017-02-26] MEDS ORDERED: *HR* Dextrose 50 % in Water (Syg) 50 ML SYRINGE IVP PRN (15:15)
--- NOTE | 2017-02-26 15:18 | Internal Medicine Consult Note ---
Date of Encounter: 02/26/17 Time of Encounter: 15:16 - Assessment and Plan (1) Diabetes mellitus Current Visit: No Status: Chronic Assessment and plan: May use insulin sliding scale Patient is taking excellent care of his diabetes May continue insulin sliding scale and also metformin daily. 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 Stone (3) Osteomyelitis Current Visit: No Status: Acute Qualifiers: Osteomyelitis type: other acute Osteomyelitis location: foot Laterality: left Qualified Code(s): M86.172 - Other acute osteomyelitis, left ankle and foot (4) Hypertension Current Visit: No Status: Chronic Assessment and plan: Stable Qualifiers: Hypertension type: essential hypertension Qualified Code(s): I10 - Essential (primary) hypertension Internal Medicine - CN: HPI - Data of Consult Patient: known to practice within the last 3 years Consult date: 02/26/17 Requesting Physician: Timo Stone, - Consult Narrative Reason for consult: Diabetes management History of present illness: Mr. Jordan is a 86 year old male with a past medical history of severe peripheral vascular disease, diabetes type 2 not insulin-dependent, polycythemia vera, Ragland's palsy, was admitted by Dr. Stone after having a partial left foot amputation due to ischemic necrosis. The patient had a recent stent revascularization performed by Dr. Burnett. Dr. Stone consulted as noted to manage the patient's diabetes. His glucose is 104, the patient manages his diabetes with diet very well and with 500 mg of metformin daily. He had a hemoglobin A1c of 5.3 just 2 days ago that shows excellent management. Currently he is on clindamycin and has a drain in his left food. 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 in the past) Psychiatric history: no psych history - Past Surgical History Surgical History: cholecystectomy, other (TURP, cataract surgery, left foot surgery) - Social History Smoking Status: Never smoker Smokeless Tobacco Status: No Alcohol use: none Drug use: none - Family History Father Living Status: Hx Family Cardiac Disorders: Yes (Hypertension) - Additional Family History Additional family history: Father with pneumonia, mother with colon cancer diabetes and CVA Review of systems: Mild left foot pain, other systems out with a 10 reviewed were negative Internal Medicine - CN: Meds Aspirin Enteric Coated [Aspirin EC] 325 mg PO DAILY 12/19/16 [History] Bisoprolol Fumarate [Zebeta] 10 mg PO DAILY 12/19/16 [History] Clopidogrel Bisulfate [Plavix] 75 mg PO DAILY #30 tablet 02/02/17 [Rx] levoFLOXacin [Levaquin] 750 mg PO DAILY 02/02/17 [History] metFORMIN [Glucophage] 500 mg PO 0800 02/18/17 [History] Collagenase Oint [Santyl] 1 appl TP DAILY 02/26/17 [History] 3 Allergy/AdvReac Type Severity Reaction Status Date / Time No Known Allergies Allergy Verified 02/26/17 09:31 Internal Medicine - CN: Exam - Constitutional Vitals: Temp Pulse Resp BP Pulse Ox 97.3 F L 65 17 103/53 97 02/26/17 13:49 02/26/17 13:49 02/26/17 13:49 02/26/17 13:49 02/26/17 13:49 General appearance IM: Present: A&O X 3 - Head Head exam: Present: atraumatic, normal inspection - Expanded Head Exam Head exam expanded IM: Absent: general tenderness - Eye Eye exam: Present: EOMI, normal appearance - ENT ENT exam: Present: mucous membranes moist, normal exam - Neck Neck exam general surgery: Present: full ROM, normal inspection. Absent: lymphadenopathy - Cardiovascular Cardiovascular exam IM: Present: +S1, +S2. Absent: systolic murmur, tachycardia - Rectal Rectal exam: Absent: deferred - Expanded Lower Extremities Exam Hip exam: Absent: abrasion, crepitus, deformity - Back Exam Back exam: Present: normal inspection. Absent: CVA tenderness (L), CVA tenderness (R), muscle spasm - Neurological Exam Neurological exam: Present: alert, CN II-XII intact, oriented X3 - Skin Additional comments: Left foot wound covered by dressing, drain in place Consult Discharge Plan - Plan Additional Instructions: #1 keep dressing dry clean and intact. #2 should dressing becomes soiled or saturated contact Dr. Stone immediately #3 elevated left foot #4 no weight 2 left forefoot over the incision. Weight bearing to left heel only to balance with assistance only #5 resume diabetic diet as tolerated Referrals: Shelton Lockwood Jr, MD [Primary Care Provider] -
[2017-02-26] MEDS: Insulin LISPRO 300 UNITS/3 ML VIAL SQ SCH (16:28)
[2017-02-26] MEDS: Clindamycin 600 MG/50 ML 600 MG/50 ML IV.SOLN IVPB SCH ×2 (16:29→23:51)
[2017-02-27] MEDS ORDERED: Aspirin Enteric Coated 325 MG Tablet PO SCH (09:00)
[2017-02-27] MEDS ORDERED: (Bisoprolol Fumarate [Zebeta] 10 MG) PO SCH (09:00)
[2017-02-27] MEDS: *HR* Metformin 500 MG TABLET PO SCH (09:07)
[2017-02-27] MEDS: Aspirin Enteric Coated 81 MG Tablet PO SCH (09:07)
[2017-02-27] MEDS: Insulin LISPRO 300 UNITS/3 ML VIAL SQ SCH ×4 (09:08→21:40)
[2017-02-27] MEDS: Clindamycin 600 MG/50 ML 600 MG/50 ML IV.SOLN IVPB SCH ×3 (09:08→23:43)
--- NOTE | 2017-02-27 16:57 | Podiatry Progress Note ---
Date of Encounter: 02/27/17 Time of Encounter: 12:00 - Assessment and Plan (1) Puncture wound of left foot with complication Current Visit: No Status: Chronic s/p #1 incision and drainage to bone cortex for osteomyelitis left foot #2 amputation of left great toe and portion of metatarsal left foot #3 placement of TLS drain Plan: PT/OT consult in place for evaluation for LTCF placement Patient to be non weight bearing to surgical area, may bear weight to heel only Will likely need 10 days to 3 weeks of IV antibiotic therapy Daily dressing changes- adaptic, 4x4 and kerlex Change TLS drain when no more than half full to allow for proper suction- accurate documentation of output. Thanks! Qualifiers: Encounter type: initial encounter Qualified Code(s): S91.332A - Puncture wound without foreign body, left foot, initial encounter (2) Osteomyelitis Current Visit: No Status: Acute Qualifiers: Osteomyelitis type: other acute Osteomyelitis location: foot Laterality: left Qualified Code(s): M86.172 - Other acute osteomyelitis, left ankle and foot (3) Diabetes mellitus Current Visit: No Status: Chronic Strict glucose control Internal med following Qualifiers: Diabetes mellitus type: type 2 Diabetes mellitus complication status: with neurologic complications Diabetes mellitus complication detail: with autonomic neuropathy Diabetes mellitus mcfp insulin use: without mcfp use Qualified Code(s): E11.43 - Type 2 diabetes mellitus with diabetic autonomic (poly)neuropathy Subjective Interval history: Patient is post op day #1, s/p #1 incision and drainage to bone cortex for osteomyelitis left foot #2 amputation of left great toe and portion of metatarsal left foot #3 placement of TLS drain Patient is resting comfortably on arrival Patient is neuropathic however denies any pain. There is slight strikethrough drainage noted to dressing but it is otherwise intact There is a TLS drain noted with scant amount of bloody drainage, appears intact. Objective - Vital Signs Vital Signs: Vital Signs Temp Pulse Resp BP Pulse Ox 02/27/17 15:40 98.7 F 69 18 122/63 97 02/27/17 11:00 98.3 F 63 16 118/60 96 02/27/17 07:18 97.5 F L 62 15 131/65 97 02/27/17 05:11 97.6 F 60 17 121/62 98 02/26/17 22:55 97.5 F L 67 16 142/64 98 02/26/17 18:40 99.3 F 59 16 122/66 99 Intake and Output 02/27/17 02/27/17 02/27/17 07:59 15:59 23:59 Intake Total 50 / 50 530 / 530 Output Total 400 / 400 Balance 50 / 50 130 / 130 Intake: IV Fluids 50 / 50 50 / 50 Cleocin Premix 600 MG/50 ML 600 50 / 50 50 / 50 mg In 50 ml @ 50 mls/hr IVPB Q8HR [facility] Rx#:[id number] Oral 480 / 480 Output: Urine 400 / 400 Other: Meal Lunch Percent of Meal Consumed 100% Weight 67.585 kg Blood Glucose* 88 89 Patient Weight 02/27/17 23:59 Weight 67.585 kg - Exam Exam: Awake, alert and oriented Dressing removed Pulses palpable, faint, DP Surgical incision clean dry and intact- there are no clinical signs of dehiscence, no edema, no warmth, no erythema No bleeding noted at this time There is a TLS drain in place- bloody drainage There is a chronic healing area of ischemia of the 5th MT- will need silvadine cream placed with dry dressing with dressing changes. This has improved since initial assessment. - Lab Labs: Abnormal lab results POC Glucose 136 (58-89) H 02/26/17 19:55 - VTE Documentation of Mechanical Device: Intermittent pneumatic compression device Consult Discharge Plan - Plan Additional Instructions: #1 keep dressing dry clean and intact. #2 should dressing becomes soiled or saturated contact Dr. Stone immediately #3 elevated left foot #4 no weight 2 left forefoot over the incision. Weight bearing to left heel only to balance with assistance only #5 resume diabetic diet as tolerated Referrals: Shelton Lockwood Jr, MD [Primary Care Provider] - 03/06/17 10:00 am (please follow up as schedule)
--- NOTE | 2017-02-27 18:19 | Internal Med Progress Note ---
Date of Encounter: 02/27/17 Time of Encounter: 18:14 - Assessment and plan (1) Puncture wound of left foot with complication Current Visit: Yes Status: Chronic Qualifiers: Encounter type: initial encounter Qualified Code(s): S91.332A - Puncture wound without foreign body, left foot, initial encounter (2) Osteomyelitis Current Visit: Yes Status: Acute Qualifiers: Osteomyelitis type: other acute Osteomyelitis location: foot Laterality: left Qualified Code(s): M86.172 - Other acute osteomyelitis, left ankle and foot (3) Diabetes mellitus Current Visit: Yes Status: Chronic Qualifiers: Diabetes mellitus type: type 2 Diabetes mellitus complication status: with neurologic complications Diabetes mellitus complication detail: with autonomic neuropathy Diabetes mellitus halfway insulin use: without halfway use Qualified Code(s): E11.43 - Type 2 diabetes mellitus with diabetic autonomic (poly)neuropathy (4) Cutaneous abscess of left foot Current Visit: Yes Status: Acute (5) Hypertension Current Visit: No Status: Chronic Qualifiers: Hypertension type: essential hypertension Qualified Code(s): I10 - Essential (primary) hypertension - Subjective Interval history: Patient admitted by podiatry for diabetic foot ulcer status post amputation. 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 Podiatry suspected osteomyelitis. Await wound cultures. Continue watching blood sugar closely and optimal range would be under 1:30. Beta brea can be DC'd as it might contribute more to peripheral vascular disease. Order CBC CMP and CRP. - Constitutional Vitals: Temp Pulse Resp BP Pulse Ox 98.7 F 69 18 122/63 97 02/27/17 15:40 02/27/17 15:40 02/27/17 15:40 02/27/17 15:40 02/27/17 15:40 General appearance: Present: A&O X 3 - Head Head exam: Present: atraumatic, normocephalic - Eye Eye exam: Present: PERRL, conjuntiva pink, sclera anicteric Pupils: Present: PERRL - Neck Neck exam general surgery: Present: supple, trachea midline. Absent: lymphadenopathy - Respiratory Respiratory exam: Present: CTAB. Absent: accessory muscle use, rales, rhonchi, wheezes - Cardiovascular Cardiovascular exam: Present: RRR, +S1, +S2. Absent: diastolic murmur, gallop, rubs, systolic murmur - GI/Abdominal GI/Abdominal exam: Present: normal bowel sounds, soft, no peritoneal signs. Absent: distended, tenderness - Extremities Exam Extremities exam: Present: warm, radial pulses palpable and symmetrical. Absent : calf tenderness, cyanotic, pedal edema Additional comments: Per podiatry - Neurological Exam Neurological exam: Present: CN II-XII intact, oriented X3, no focal deficits. Absent: pronater drift, facial droop, speech deficit - Skin Skin exam: Present: dry, intact - VTE Documentation of Mechanical Device: Intermittent pneumatic compression device Consult Discharge Plan - Plan Additional Instructions: #1 keep dressing dry clean and intact. #2 should dressing becomes soiled or saturated contact Dr. Stone immediately #3 elevated left foot #4 no weight 2 left forefoot over the incision. Weight bearing to left heel only to balance with assistance only #5 resume diabetic diet as tolerated Referrals: Shelton Lockwood Jr, MD [Primary Care Provider] - 03/06/17 10:00 am (please follow up as schedule)
[2017-02-28 06:36] LABS: Basophils # 0.1 K/mcL (0.0-0.2); Basophils % 0.8 %; Eosinophils # 1.2 K/mcL (0.0-0.6); Eosinophils % 11.9 %; Hemoglobin 12.7 g/dL (12.9-16.9); Immature Granulocytes % 0.3 % (0-4); Lymphocytes # 2.2 K/mcL (0.6-4.6); Lymphocytes % 21.6 %; Mean Corpuscular HGB Conc 33.4 g/dL (31.6-35.5); Mean Corpuscular Hemoglobin 27.6 pg (28.0-33.3); Mean Corpuscular Volume 82.6 fL (83.0-100.0); Mean Platelet Volume 10.1 fL (9.4-12.4); Monocytes % 9.7 %; Neutrophils # 5.7 K/mcL (1.6-8.9); Platelet Count 182 K/mcL (140-400); Red Cell Distribution Width 13.9 % (11.5-14.5); Segmented Neutrophils % 55.7 %
[2017-02-28 07:02] LABS: Alanine Aminotransferase 8 Units/L (0-55); Albumin 2.7 g/dL (3.5-5.0); Albumin/Globulin Ratio 0.9 (1.1-2.2); Alkaline Phosphatase 132 Units/L (38-126); Aspartate Amino Transferase 21 Units/L (5-34); BUN/Creatinine Ratio 15 (6-26); Bilirubin,Total 1.6 mg/dL (0.2-1.2); Blood Urea Nitrogen 12 mg/dL (8-26); Calcium 8.5 mg/dL (8.6-10.8); Carbon Dioxide 25 mEq/L (19-29); Chloride 105 mEq/L (98-109); Glucose 87 mg/dL (70-99); Osmolality,Calculated 285 (280-300); Potassium 3.6 mEq/L (3.5-4.5); Sodium 138 mEq/L (136-145); Total Protein 5.7 g/dL (6.0-8.3); eGFR For African Americans > 60 (> 60); eGFR For Non-African Americans > 60 (> 60)
[2017-02-28 07:43] LABS: C-Reactive Protein 66 mg/L (Less than 5)
[2017-02-28] MEDS: Aspirin Enteric Coated 81 MG Tablet PO SCH (08:02)
[2017-02-28] MEDS: Insulin LISPRO 300 UNITS/3 ML VIAL SQ SCH ×4 (08:02→21:16)
[2017-02-28] MEDS: *HR* Metformin 500 MG TABLET PO SCH (08:02)
[2017-02-28] MEDS: Clindamycin 600 MG/50 ML 600 MG/50 ML IV.SOLN IVPB SCH ×3 (08:03→23:47)
--- NOTE | 2017-02-28 18:23 | Internal Med Progress Note ---
Date of Encounter: 02/28/17 Time of Encounter: 18:21 - Assessment and plan (1) Puncture wound of left foot with complication Current Visit: Yes Status: Chronic Qualifiers: Encounter type: initial encounter Qualified Code(s): S91.332A - Puncture wound without foreign body, left foot, initial encounter (2) Osteomyelitis Current Visit: Yes Status: Acute Qualifiers: Osteomyelitis type: other acute Osteomyelitis location: foot Laterality: left Qualified Code(s): M86.172 - Other acute osteomyelitis, left ankle and foot (3) Diabetes mellitus Current Visit: Yes Status: Chronic Qualifiers: Diabetes mellitus type: type 2 Diabetes mellitus complication status: with neurologic complications Diabetes mellitus complication detail: with autonomic neuropathy Diabetes mellitus usp insulin use: without usp use Qualified Code(s): E11.43 - Type 2 diabetes mellitus with diabetic autonomic (poly)neuropathy (4) Cutaneous abscess of left foot Current Visit: Yes Status: Acute (5) Hypertension Current Visit: No Status: Chronic Qualifiers: Hypertension type: essential hypertension Qualified Code(s): I10 - Essential (primary) hypertension - Subjective Interval history: Patient admitted by podiatry for diabetic foot ulcer status post amputation. 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 Podiatry suspected osteomyelitis. Cultures showed staph and gram-negative vanessa sensitivity and fungal cultures are pending.. Continue watching blood sugar closely and optimal range would be under 1:30. Beta brea has been DC'd due to possible peripheral vascular disease. Blood pressure and heart rate is stable without it. Order CBC CMP and CRP. - Constitutional Vitals: Temp Pulse Resp BP Pulse Ox 97.6 F 61 14 130/65 98 02/28/17 15:47 02/28/17 15:47 02/28/17 15:47 02/28/17 15:47 02/28/17 15:47 General appearance: Present: A&O X 3 - Head Head exam: Present: atraumatic, normocephalic - Eye Eye exam: Present: PERRL, conjuntiva pink, sclera anicteric Pupils: Present: PERRL - Neck Neck exam general surgery: Present: supple, trachea midline. Absent: lymphadenopathy - Respiratory Respiratory exam: Present: CTAB. Absent: accessory muscle use, rales, rhonchi, wheezes - Cardiovascular Cardiovascular exam: Present: RRR, +S1, +S2. Absent: diastolic murmur, gallop, rubs, systolic murmur - GI/Abdominal GI/Abdominal exam: Present: normal bowel sounds, soft, no peritoneal signs. Absent: distended, tenderness - Extremities Exam Extremities exam: Present: warm, radial pulses palpable and symmetrical. Absent : calf tenderness, cyanotic, pedal edema Additional comments: foot exam per podiatry. - Neurological Exam Neurological exam: Present: CN II-XII intact, oriented X3, no focal deficits. Absent: pronater drift, facial droop, speech deficit - Skin Skin exam: Present: dry, intact Internal Medicine: Result - Labs CBC & Chem 7: 02/28/17 06:15 02/28/17 06:15 Labs: Short CBC 02/28/17 Range/Units 06:15 WBC 10.2 (4.3-11.1) K/mcL Hgb 12.7 L (12.9-16.9) g/dL Hct 38.0 (37.5-50.1) % Plt Count 182 (140-400) K/mcL Neutrophils # 5.7 (1.6-8.9) K/mcL BMP 02/28/17 06:15 Sodium 138 Potassium 3.6 Chloride 105 Carbon Dioxide 25 BUN 12 Creatinine 0.80 Glucose 87 Calcium 8.5 L Liver Function 02/28/17 Range/Units 06:15 Total Bilirubin 1.6 H (0.2-1.2) mg/dL AST 21 (5-34) Units/L ALT 8 (0-55) Units/L Alkaline Phosphatase 132 H (38-126) Units/L Albumin 2.7 L (3.5-5.0) g/dL - VTE Documentation of Mechanical Device: Intermittent pneumatic compression device Consult Discharge Plan - Plan Additional Instructions: #1 keep dressing dry clean and intact. #2 should dressing becomes soiled or saturated contact Dr. Stone immediately #3 elevated left foot #4 no weight 2 left forefoot over the incision. Weight bearing to left heel only to balance with assistance only #5 resume diabetic diet as tolerated Referrals: Shelton Lockwood Jr, MD [Primary Care Provider] - 03/06/17 10:00 am (please follow up as schedule)
[2017-03-01 03:51] LABS: Basophils # 0.1 K/mcL (0.0-0.2); Basophils % 0.8 %; Eosinophils # 1.3 K/mcL (0.0-0.6); Eosinophils % 13.1 %; Hematocrit 37.6 % (37.5-50.1); Hemoglobin 12.6 g/dL (12.9-16.9); Immature Granulocytes % 0.3 % (0-4); Lymphocytes # 2.3 K/mcL (0.6-4.6); Lymphocytes % 22.4 %; Mean Corpuscular HGB Conc 33.5 g/dL (31.6-35.5); Mean Corpuscular Hemoglobin 27.8 pg (28.0-33.3); Mean Platelet Volume 10.2 fL (9.4-12.4); Monocytes % 10.3 %; Neutrophils # 5.3 K/mcL (1.6-8.9); Platelet Count 200 K/mcL (140-400); Red Blood Count 4.53 M/mcL (4.19-5.50); Red Cell Distribution Width 13.8 % (11.5-14.5); Segmented Neutrophils % 53.1 %
[2017-03-01 04:03] LABS: Alanine Aminotransferase 8 Units/L (0-55); Albumin 2.6 g/dL (3.5-5.0); Albumin/Globulin Ratio 0.9 (1.1-2.2); Alkaline Phosphatase 128 Units/L (38-126); Aspartate Amino Transferase 23 Units/L (5-34); BUN/Creatinine Ratio 17 (6-26); Bilirubin,Total 1.2 mg/dL (0.2-1.2); Blood Urea Nitrogen 12 mg/dL (8-26); Calcium 8.3 mg/dL (8.6-10.8); Carbon Dioxide 25 mEq/L (19-29); Chloride 105 mEq/L (98-109); Glucose 82 mg/dL (70-99); Osmolality,Calculated 285 (280-300); Potassium 3.6 mEq/L (3.5-4.5); Sodium 138 mEq/L (136-145); Total Protein 5.6 g/dL (6.0-8.3); eGFR For African Americans > 60 (> 60); eGFR For Non-African Americans > 60 (> 60)
[2017-03-01] MEDS ORDERED: Vancomycin 1,000 MG in D5% in Water 250 ML IVPB ONE ×2 (08:24→09:01)
--- NOTE | 2017-03-01 08:32 | Podiatry Progress Note ---
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 Jewel Jordan, underwent first ray amputation secondary to necrosis of tissue and bone. Unfortunately at the time of operation there is no active evidence of infection. We had to sacrifice the great toe because of necrosis and soft tissue coverage to give him a functional plantigrade foot postoperatively. He is now postop day #3 and healing uneventfully. No chest pain no nausea no vomiting no fever no chills. Wound is clean sutures are intact. He is sitting upright in bed eating and conversing is quite comfortable and without pain. Objective - Vital Signs Vital Signs: Vital Signs Temp Pulse Resp BP Pulse Ox 03/01/17 03:12 98.8 F 63 16 115/62 96 02/28/17 23:22 98.7 F 65 16 119/58 96 02/28/17 19:42 98.3 F 64 18 98 02/28/17 15:47 97.6 F 61 14 130/65 98 02/28/17 11:02 97.4 F L 65 14 139/64 100 Intake and Output 02/28/17 03/01/17 03/01/17 23:59 07:59 15:59 Intake Total 50 / 50 Balance 50 / 50 Intake: IV Fluids 50 / 50 Cleocin Premix 600 MG/50 ML 600 50 / 50 mg In 50 ml @ 50 mls/hr IVPB Q8HR [facility] Rx#:[id number] Other: Weight 61.507 kg Blood Glucose* 139 Patient Weight 03/01/17 23:59 Weight 61.507 kg - Exam Exam: Sutures intact no evidence of dehiscence. No evidence of hematoma or seroma. Intraoperative cultures revealed MRSA and Providencia rettgeri both sparse. Given the fact that the wound was absolutely clean at the time of operation these were likely consider contaminants. Incision: Present: healing, clean and dry Capillary Refill: less than 3 seconds - Lab Result Diagrams: 03/01/17 02:57 03/01/17 02:57 Labs: Abnormal lab results Hgb 12.6 g/dL (12.9-16.9) L 03/01/17 02:57 MCH 27.8 pg (28.0-33.3) L 03/01/17 02:57 Eosinophils # 1.3 K/mcL (0.0-0.6) H 03/01/17 02:57 Creatinine 0.71 mg/dL (0.72-1.25) L 03/01/17 02:57 POC Glucose 100 (58-89) H 02/28/17 15:49 Calcium 8.3 mg/dL (8.6-10.8) L 03/01/17 02:57 Alkaline Phosphatase 128 Units/L (38-126) H 03/01/17 02:57 C-Reactive Protein 66 mg/L (Less than 5) H 02/28/17 06:15 Serum Total Protein 5.6 g/dL (6.0-8.3) L 03/01/17 02:57 Albumin 2.6 g/dL (3.5-5.0) L 03/01/17 02:57 Albumin/Globulin Ratio 0.9 (1.1-2.2) L 03/01/17 02:57 Microbiology, Last 48 Hours 02/26/17 11:00 Wound Culture - Final Left Foot Methicillin Resistant S.aureus Providencia rettgeri - VTE Documentation of Mechanical Device: Intermittent pneumatic compression device Consult Discharge Plan - Plan Additional Instructions: #1 keep dressing dry clean and intact. #2 should dressing becomes soiled or saturated contact Dr. Stone immediately #3 elevated left foot #4 no weight 2 left forefoot over the incision. Weight bearing to left heel only to balance with assistance only #5 resume diabetic diet as tolerated Referrals: Shelton Lockwood Jr, MD [Primary Care Provider] - 03/06/17 10:00 am (please follow up as schedule)
[2017-03-01] MEDS: Ertapenem 1,000 MG in 0.9 % Sodium Chloride Mini Bag 100 ML IVPB SCH (09:02)
[2017-03-01] MEDS: Insulin LISPRO 300 UNITS/3 ML VIAL SQ SCH ×4 (09:07→21:21)
[2017-03-01] MEDS: Aspirin Enteric Coated 81 MG Tablet PO SCH (09:07)
[2017-03-01] MEDS ORDERED: D5% in Water 250 ML ONE (10:33)
--- NOTE | 2017-03-01 17:26 | Internal Med Progress Note ---
Date of Encounter: 03/01/17 Time of Encounter: 17:25 - Assessment and plan (1) Puncture wound of left foot with complication Current Visit: Yes Status: Chronic Qualifiers: Encounter type: initial encounter Qualified Code(s): S91.332A - Puncture wound without foreign body, left foot, initial encounter (2) Osteomyelitis Current Visit: Yes Status: Acute Qualifiers: Osteomyelitis type: other acute Osteomyelitis location: foot Laterality: left Qualified Code(s): M86.172 - Other acute osteomyelitis, left ankle and foot (3) Diabetes mellitus Current Visit: Yes Status: Chronic Qualifiers: Diabetes mellitus type: type 2 Diabetes mellitus complication status: with neurologic complications Diabetes mellitus complication detail: with autonomic neuropathy Diabetes mellitus [facility] insulin use: without [facility] use Qualified Code(s): E11.43 - Type 2 diabetes mellitus with diabetic autonomic (poly)neuropathy (4) Cutaneous abscess of left foot Current Visit: Yes Status: Acute (5) Hypertension Current Visit: No Status: Chronic Qualifiers: Hypertension type: essential hypertension Qualified Code(s): I10 - Essential (primary) hypertension - Subjective Interval history: Patient admitted by podiatry for diabetic foot ulcer status post amputation. 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 Podiatry suspected osteomyelitis. Cultures showed staph and gram-negative vanessa sensitivity and fungal cultures are pending.. Continue watching blood sugar closely and optimal range would be under 1:30. Beta brea has been DC'd due to possible peripheral vascular disease. Blood pressure and heart rate is stable without it. Order CBC CMP and CRP. 03/01 noted surgery has seen the patient and he is set to a cultures are contaminant. Patient is off antibiotics. Surgery has stated that patient has ischemic necrosis/osteomyelitis. Patient blood pressure and electrolytes are stable. Patient is planned to be discharged [facility] by surgery. - Constitutional Vitals: Temp Pulse Resp BP Pulse Ox 98.1 F 68 16 153/72 98 03/01/17 16:00 03/01/17 16:00 03/01/17 16:00 03/01/17 16:00 03/01/17 16:00 General appearance: Present: A&O X 3 - Head Head exam: Present: atraumatic, normocephalic - Eye Eye exam: Present: PERRL, conjuntiva pink, sclera anicteric Pupils: Present: PERRL - Neck Neck exam general surgery: Present: supple, trachea midline. Absent: lymphadenopathy - Respiratory Respiratory exam: Present: CTAB. Absent: accessory muscle use, rales, rhonchi, wheezes - Cardiovascular Cardiovascular exam: Present: RRR, +S1, +S2. Absent: diastolic murmur, gallop, rubs, systolic murmur - GI/Abdominal GI/Abdominal exam: Present: normal bowel sounds, soft, no peritoneal signs. Absent: distended, tenderness - Extremities Exam Extremities exam: Present: warm, radial pulses palpable and symmetrical. Absent : calf tenderness, cyanotic, pedal edema - Neurological Exam Neurological exam: Present: CN II-XII intact, oriented X3, no focal deficits. Absent: pronater drift, facial droop, speech deficit - Skin Skin exam: Present: dry, intact Internal Medicine: Result - Labs CBC & Chem 7: 03/01/17 02:57 03/01/17 02:57 Labs: Short CBC 03/01/17 Range/Units 02:57 WBC 10.1 (4.3-11.1) K/mcL Hgb 12.6 L (12.9-16.9) g/dL Hct 37.6 (37.5-50.1) % Plt Count 200 (140-400) K/mcL Neutrophils # 5.3 (1.6-8.9) K/mcL BMP 03/01/17 02:57 Sodium 138 Potassium 3.6 Chloride 105 Carbon Dioxide 25 BUN 12 Creatinine 0.71 L Glucose 82 Calcium 8.3 L Liver Function 03/01/17 Range/Units 02:57 Total Bilirubin 1.2 (0.2-1.2) mg/dL AST 23 (5-34) Units/L ALT 8 (0-55) Units/L Alkaline Phosphatase 128 H (38-126) Units/L Albumin 2.6 L (3.5-5.0) g/dL - VTE Documentation of Mechanical Device: Intermittent pneumatic compression device Consult Discharge Plan - Plan Additional Instructions: #1 keep dressing dry clean and intact. #2 should dressing becomes soiled or saturated contact Dr. Stone immediately #3 elevated left foot #4 no weight 2 left forefoot over the incision. Weight bearing to left heel only to balance with assistance only #5 resume diabetic diet as tolerated Referrals: Shelton Lockwood Jr, MD [Primary Care Provider] - 03/06/17 10:00 am (please follow up as schedule)
[2017-03-02 03:24] LABS: Basophils # 0.1 K/mcL (0.0-0.2); Basophils % 0.9 %; Eosinophils # 1.1 K/mcL (0.0-0.6); Eosinophils % 11.9 %; Hematocrit 37.7 % (37.5-50.1); Hemoglobin 12.5 g/dL (12.9-16.9); Immature Granulocytes % 0.3 % (0-4); Lymphocytes # 1.7 K/mcL (0.6-4.6); Lymphocytes % 18.2 %; Mean Corpuscular HGB Conc 33.2 g/dL (31.6-35.5); Mean Corpuscular Hemoglobin 27.5 pg (28.0-33.3); Monocytes % 10.3 %; Neutrophils # 5.6 K/mcL (1.6-8.9); Platelet Count 186 K/mcL (140-400); Red Blood Count 4.54 M/mcL (4.19-5.50); Red Cell Distribution Width 13.8 % (11.5-14.5); Segmented Neutrophils % 58.4 %
[2017-03-02 03:41] LABS: Alanine Aminotransferase 10 Units/L (0-55); Albumin 2.6 g/dL (3.5-5.0); Albumin/Globulin Ratio 0.9 (1.1-2.2); Alkaline Phosphatase 126 Units/L (38-126); Aspartate Amino Transferase 25 Units/L (5-34); BUN/Creatinine Ratio 14 (6-26); Bilirubin,Total 1.1 mg/dL (0.2-1.2); Blood Urea Nitrogen 11 mg/dL (8-26); Calcium 8.4 mg/dL (8.6-10.8); Carbon Dioxide 25 mEq/L (19-29); Chloride 105 mEq/L (98-109); Glucose 92 mg/dL (70-99); Osmolality,Calculated 285 (280-300); Potassium 3.5 mEq/L (3.5-4.5); Sodium 138 mEq/L (136-145); Total Protein 5.6 g/dL (6.0-8.3); eGFR For African Americans > 60 (> 60); eGFR For Non-African Americans > 60 (> 60)
[2017-03-02] MEDS: Insulin LISPRO 300 UNITS/3 ML VIAL SQ SCH ×4 (09:11→20:47)
[2017-03-02] MEDS: Aspirin Enteric Coated 81 MG Tablet PO SCH (09:15)
[2017-03-02] MEDS: Ertapenem 1,000 MG in 0.9 % Sodium Chloride Mini Bag 100 ML IVPB SCH (09:15)
--- NOTE | 2017-03-02 12:45 | Discharge Summary ---
Date of Encounter: 03/03/17 Time of Encounter: 12:30 - Discharge Medications Prescriptions: Sulfamethoxazole/Trimeth DS [Bactrim DS] 1 each PO BID 10 Days #20 tablet Home Medications: Aspirin Enteric Coated [Aspirin EC] 325 mg PO DAILY 12/19/16 [History] Bisoprolol Fumarate [Zebeta] 10 mg PO DAILY 12/19/16 [History] Clopidogrel Bisulfate [Plavix] 75 mg PO DAILY #30 tablet 02/02/17 [Rx] metFORMIN [Glucophage] 500 mg PO 0800 02/18/17 [History] Sulfamethoxazole/Trimeth DS [Bactrim DS] 1 each PO BID 10 Days #20 tablet [Rx] Allergies/Adverse Reactions: 3 Allergy/AdvReac Type Severity Reaction Status Date / Time No Known Allergies Allergy Verified 02/26/17 09:31 Labs on day of discharge: Labs from last 24 hours 03/02/17 03/02/17 03/02/17 11:22 07:21 03:07 WBC RBC Hgb Hct MCV MCH MCHC RDW Plt Count MPV Immature Gran % Seg Neutrophils % Lymphocytes % Monocytes % Eosinophils % Basophils % Neutrophils # Lymphocytes # Monocytes # Eosinophils # Basophils # Sodium 138 Potassium 3.5 Chloride 105 Carbon Dioxide 25 BUN 11 Creatinine 0.77 Est GFR ( Amer) > 60 Est GFR (Non-Af Amer) > 60 BUN/Creatinine Ratio 14 Glucose 92 POC Glucose 149 H 75 Calculated Osmolality 285 Calcium 8.4 L Total Bilirubin 1.1 AST 25 ALT 10 Alkaline Phosphatase 126 Serum Total Protein 5.6 L Albumin 2.6 L Globulin 3.0 Albumin/Globulin Ratio 0.9 L 03/02/17 03/01/17 03/01/17 03:07 20:19 16:02 WBC 9.6 RBC 4.54 Hgb 12.5 L Hct 37.7 MCV 83.0 MCH 27.5 L MCHC 33.2 RDW 13.8 Plt Count 186 MPV 10.0 Immature Gran % 0.3 Seg Neutrophils % 58.4 Lymphocytes % 18.2 Monocytes % 10.3 Eosinophils % 11.9 Basophils % 0.9 Neutrophils # 5.6 Lymphocytes # 1.7 Monocytes # 1.0 Eosinophils # 1.1 H Basophils # 0.1 Sodium Potassium Chloride Carbon Dioxide BUN Creatinine Est GFR ( Amer) Est GFR (Non-Af Amer) BUN/Creatinine Ratio Glucose POC Glucose 131 H 99 H Calculated Osmolality Calcium Total Bilirubin AST ALT Alkaline Phosphatase Serum Total Protein Albumin Globulin Albumin/Globulin Ratio 03/01/17 02/28/17 12:17 19:47 WBC RBC Hgb Hct MCV MCH MCHC RDW Plt Count MPV Immature Gran % Seg Neutrophils % Lymphocytes % Monocytes % Eosinophils % Basophils % Neutrophils # Lymphocytes # Monocytes # Eosinophils # Basophils # Sodium Potassium Chloride Carbon Dioxide BUN Creatinine Est GFR ( Amer) Est GFR (Non-Af Amer) BUN/Creatinine Ratio Glucose POC Glucose 159 H 139 H Calculated Osmolality Calcium Total Bilirubin AST ALT Alkaline Phosphatase Serum Total Protein Albumin Globulin Albumin/Globulin Ratio Preliminary micro results at discharge 02/26/17 11:00 Anaerobic Culture - Preliminary Left Foot At this time, no anaerobic growth is present. The culture will be finalized after 5 days of incubation. Date of admission: 02/26/17 17:46 Primary care physician: Shelton Lockwood Jr, MD Consults: 02/26/17 13:43 Consult to Service Liaison Representative [CONS] Routine Reason for SW Consult: pt family stated he was to go to [facility] at discharge Anticipated date of discharge: 03/02/17 - Patient Status Disposition: Transfer SNF Condition: Fair Functional capacity at discharge: uses cane/walker (Must have PT/OT consult prior to discharge.) Overall status at discharge: patient is progressing back to baseline - Ambulatory Orders Ambulatory Orders: Potassium [CHEM] Time Frame: 03/08/17, Facility: [facility], Location: Lab - Discharge Instructions Follow Up With: Wound,Care [Other] - 03/11/17 8:30 am Shelton Lockwood Jr, MD [Primary Care Provider] - () Additional Instructions: #1 keep dressing dry clean and intact. #2 should dressing becomes soiled or saturated contact Dr. Stone immediately #3 elevated left foot #4 no weight to left forefoot over the incision. Weight bearing to left heel only to balance with assistance only #5 resume diabetic diet as tolerated #6 Start Bactrim DS PO BID x 10 days. #7 Potassium lab ordered for 03/08/17. - Diet and Activity Activity: as per physical therapy Diet: diabetic diet - Hospital Course Hospital course: Mr. Jordan is a 86 year old male admitted to [place] s/p incision and drainage to bone cortex for osteomyelitis left foot, amputation of left great toe and portion of metatarsal left foot by Dr. Stnoe on 02/26/17 for ischemic necrosis of bone with ulceration left foot. 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 Hospitalist was consulted for management of comorbidities. Patient was started on IV vancomycin upon arrival. Wound cultures isolated sparse growth of MRSA and Providencia rettgeri, per Dr. Stone most likely contaminant. Will start patient on Bactrim DS PO BID x 10 days. Dressing changed on 03/02/17 at bedside and healing uneventfully. PT/OT was consulted for ECF placement. Patients condition improved and will be discharged to [facility] for rehab. - Time Spent with Patient Total time spent providing and/or coordinating discharge services: - VTE Documentation of Mechanical Device: Intermittent pneumatic compression device
--- NOTE | 2017-03-02 14:58 | Internal Med Progress Note ---
Date of Encounter: 03/02/17 Time of Encounter: 14:57 - Assessment and plan (1) Puncture wound of left foot with complication Current Visit: Yes Status: Chronic Qualifiers: Encounter type: initial encounter Qualified Code(s): S91.332A - Puncture wound without foreign body, left foot, initial encounter (2) Osteomyelitis Current Visit: Yes Status: Acute Qualifiers: Osteomyelitis type: other acute Osteomyelitis location: foot Laterality: left Qualified Code(s): M86.172 - Other acute osteomyelitis, left ankle and foot (3) Diabetes mellitus Current Visit: Yes Status: Chronic Qualifiers: Diabetes mellitus type: type 2 Diabetes mellitus complication status: with neurologic complications Diabetes mellitus complication detail: with autonomic neuropathy Diabetes mellitus intermediate insulin use: without intermediate use Qualified Code(s): E11.43 - Type 2 diabetes mellitus with diabetic autonomic (poly)neuropathy (4) Cutaneous abscess of left foot Current Visit: Yes Status: Acute (5) Hypertension Current Visit: No Status: Chronic Qualifiers: Hypertension type: essential hypertension Qualified Code(s): I10 - Essential (primary) hypertension - Subjective Interval history: Patient admitted by podiatry for diabetic foot ulcer status post amputation. 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 Podiatry suspected osteomyelitis. Cultures showed staph and gram-negative vanessa sensitivity and fungal cultures are pending.. Continue watching blood sugar closely and optimal range would be under 1:30. Beta brea has been DC'd due to possible peripheral vascular disease. Blood pressure and heart rate is stable without it. Order CBC CMP and CRP. 03/01 noted surgery has seen the patient and he is set to a cultures are contaminant. Patient is off antibiotics. Surgery has stated that patient has ischemic necrosis/osteomyelitis. Patient blood pressure and electrolytes are stable. Patient is planned to be discharged to [facility] by surgery. 01/31 his beta brea was DC'd the for blood pressure has been running high and considering his diabetic low-dose lisinopril can be added for blood pressure control. All antibiotics have been stopped per surgery's recommendations. It was noted that surgery is planning to transfer patient to [facility]. In the medicine hospitalist service signed off and available when necessary - Constitutional Vitals: Temp Pulse Resp BP Pulse Ox 97.4 F L 64 14 129/71 97 03/02/17 10:20 03/02/17 10:20 03/02/17 10:20 03/02/17 10:20 03/02/17 10:20 General appearance: Present: A&O X 3 - Head Head exam: Present: atraumatic, normocephalic - Eye Eye exam: Present: PERRL, conjuntiva pink, sclera anicteric Pupils: Present: PERRL - Neck Neck exam general surgery: Present: supple, trachea midline. Absent: lymphadenopathy - Respiratory Respiratory exam: Present: CTAB. Absent: accessory muscle use, rales, rhonchi, wheezes - Cardiovascular Cardiovascular exam: Present: RRR, +S1, +S2. Absent: diastolic murmur, gallop, rubs, systolic murmur - GI/Abdominal GI/Abdominal exam: Present: normal bowel sounds, soft, no peritoneal signs. Absent: distended, tenderness - Extremities Exam Extremities exam: Present: warm, radial pulses palpable and symmetrical. Absent : calf tenderness, cyanotic, pedal edema - Neurological Exam Neurological exam: Present: CN II-XII intact, oriented X3, no focal deficits. Absent: pronater drift, facial droop, speech deficit - Skin Skin exam: Present: dry, intact Internal Medicine: Result - Labs CBC & Chem 7: 03/02/17 03:07 03/02/17 03:07 Labs: Short CBC 03/02/17 Range/Units 03:07 WBC 9.6 (4.3-11.1) K/mcL Hgb 12.5 L (12.9-16.9) g/dL Hct 37.7 (37.5-50.1) % Plt Count 186 (140-400) K/mcL Neutrophils # 5.6 (1.6-8.9) K/mcL BMP 03/02/17 03:07 Sodium 138 Potassium 3.5 Chloride 105 Carbon Dioxide 25 BUN 11 Creatinine 0.77 Glucose 92 Calcium 8.4 L Liver Function 03/02/17 Range/Units 03:07 Total Bilirubin 1.1 (0.2-1.2) mg/dL AST 25 (5-34) Units/L ALT 10 (0-55) Units/L Alkaline Phosphatase 126 (38-126) Units/L Albumin 2.6 L (3.5-5.0) g/dL - VTE Documentation of Mechanical Device: Intermittent pneumatic compression device Consult Discharge Plan - Plan Additional Instructions: #1 keep dressing dry clean and intact. #2 should dressing becomes soiled or saturated contact Dr. Stone immediately #3 elevated left foot #4 no weight 2 left forefoot over the incision. Weight bearing to left heel only to balance with assistance only #5 resume diabetic diet as tolerated Referrals: Wound,Care [Other] - 03/11/17 9:15 am Shelton Lockwood Jr, MD [Primary Care Provider] - ()
--- NOTE | 2017-03-02 16:41 | Physician Discharge Referral ---
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 For more information, call the [employer]uit Line at 7-249-GMCM-NOW. - Ancillary Orders May use pressure relief devices daily prn - Mobility Orders Ambulate (May participate in rehabilitation but to avoid all pressure to incision site. May bear weight on heel of his left foot only with protection. Use postop shoe at all times. Offload heels when in bed.) - Rehabiliation Orders Rehab Potential: Fair Rehab Orders: Evaluation for Physical Therapy, Evaluation for Occupational Therapy - Treatments Skin tear care topically daily PRN per policy - Diet Orders No Concentrated Sweets (Dressing change. Cleansed left foot incision with mild soap and warm water daily. Pat dry. Apply Adaptic 4 x 4's and Kerlix with Medipore tape daily) CERTIFICATION: I certify that the transfer of the above named patient to an Extended Care Facility is necessary for the continuing treatment of the diagnosis listed. The above information is true and accurate reflection of patient's current condition. Confidential - Redisclosure prohibited without a patient's written consent.
[2017-03-03 04:18] LABS: Basophils # 0.1 K/mcL (0.0-0.2); Basophils % 0.9 %; Eosinophils # 1.1 K/mcL (0.0-0.6); Eosinophils % 10.3 %; Hematocrit 40.2 % (37.5-50.1); Hemoglobin 13.4 g/dL (12.9-16.9); Immature Granulocytes % 0.5 % (0-4); Lymphocytes % 19.7 %; Mean Corpuscular HGB Conc 33.3 g/dL (31.6-35.5); Mean Corpuscular Hemoglobin 27.5 pg (28.0-33.3); Mean Corpuscular Volume 82.5 fL (83.0-100.0); Mean Platelet Volume 9.9 fL (9.4-12.4); Platelet Count 216 K/mcL (140-400); Red Blood Count 4.87 M/mcL (4.19-5.50); Red Cell Distribution Width 13.7 % (11.5-14.5); Segmented Neutrophils % 58.6 %
[2017-03-03 04:33] LABS: Alanine Aminotransferase 11 Units/L (0-55); Albumin 2.7 g/dL (3.5-5.0); Albumin/Globulin Ratio 0.9 (1.1-2.2); Alkaline Phosphatase 137 Units/L (38-126); Aspartate Amino Transferase 29 Units/L (5-34); BUN/Creatinine Ratio 17 (6-26); Bilirubin,Total 0.9 mg/dL (0.2-1.2); Blood Urea Nitrogen 12 mg/dL (8-26); Calcium 8.4 mg/dL (8.6-10.8); Carbon Dioxide 27 mEq/L (19-29); Chloride 105 mEq/L (98-109); Globulin 3.1 g/dL (2.4-3.5); Glucose 85 mg/dL (70-99); Osmolality,Calculated 287 (280-300); Potassium 3.7 mEq/L (3.5-4.5); Sodium 139 mEq/L (136-145); Total Protein 5.8 g/dL (6.0-8.3); eGFR For African Americans > 60 (> 60); eGFR For Non-African Americans > 60 (> 60)
[2017-03-03] MEDS: Insulin LISPRO 300 UNITS/3 ML VIAL SQ SCH (08:40)
[2017-03-03] MEDS: Aspirin Enteric Coated 81 MG Tablet PO SCH (09:11)
[2017-03-03 11:16] VITALS: BP 102/62
--- NOTE | 2017-03-03 14:21 | Event Note ---
Date of Encounter: 03/03/17 Time of Encounter: 14:20 Patient has been discharged by primary attending physician to [facility]. We will sign off.
== END 2017-03-03 15:35 | DRG 617 ==
LOC: SAMDAY 09:02 → 2ANU 12:18 → SUATTDRO 17:46 → 2ANU 17:46 → 3ANU 03-02 00:59
PROVIDERS: ADMIT Podiatrist Foot Surgery; ATTEND Podiatrist Foot Surgery